=== PATIENT | male | born 1945 | race Caucasian/White ===

== ENCOUNTER → 2022-10-14 08:06 | Outpatient (BNVA) | payer MEDICARE, BC, SELFPAY | PROVIDERS: PCP Internal Medicine; Visit Provider Internal Medicine | DX: I48.19 Other persistent atrial fibrillation (principal); Z51.81 Encounter for therapeutic drug level monitoring; Z79.01 Long term (current) use of anticoagulants | CPT/HCPCS: 85610; 99202 ==

== ENCOUNTER → 2022-10-22 08:25 | Outpatient (BNVA) | payer MEDICARE, BC, SELFPAY | PROVIDERS: PCP Internal Medicine; Visit Provider Internal Medicine | DX: I48.91 Unspecified atrial fibrillation (principal); Z79.01 Long term (current) use of anticoagulants; Z51.81 Encounter for therapeutic drug level monitoring | CPT/HCPCS: 85610; 99211 ==

== ENCOUNTER → 2022-11-09 08:41 | Outpatient (BNVA) | payer MEDICARE, BC, SELFPAY | PROVIDERS: PCP Internal Medicine; Visit Provider Internal Medicine | DX: I48.91 Unspecified atrial fibrillation (principal); Z51.81 Encounter for therapeutic drug level monitoring; Z79.01 Long term (current) use of anticoagulants | CPT/HCPCS: 85610; 99211 ==

== ENCOUNTER → 2022-11-22 08:02 | Outpatient (BNVA) | payer MEDICARE, BC, SELFPAY | PROVIDERS: PCP Internal Medicine; Visit Provider Internal Medicine | DX: I48.91 Unspecified atrial fibrillation (principal); Z79.01 Long term (current) use of anticoagulants; Z51.81 Encounter for therapeutic drug level monitoring | CPT/HCPCS: 85610; 99211 ==

== ENCOUNTER → 2022-11-29 08:44 | Outpatient (BNVA) | payer MEDICARE, BC, SELFPAY | PROVIDERS: PCP Internal Medicine; Visit Provider Internal Medicine | DX: I48.91 Unspecified atrial fibrillation (principal); Z79.01 Long term (current) use of anticoagulants; Z51.81 Encounter for therapeutic drug level monitoring | CPT/HCPCS: 85610; 99211 ==

== ENCOUNTER → 2022-12-07 08:07 | Outpatient (BNVA) | payer MEDICARE, BC, SELFPAY | PROVIDERS: PCP Internal Medicine; Visit Provider Internal Medicine | DX: I48.91 Unspecified atrial fibrillation (principal); Z79.01 Long term (current) use of anticoagulants; Z51.81 Encounter for therapeutic drug level monitoring | CPT/HCPCS: 85610; 99211 ==

== ENCOUNTER → 2022-12-14 08:02 | Outpatient (BNVA) | payer MEDICARE, BC, SELFPAY | PROVIDERS: PCP Internal Medicine; Visit Provider Internal Medicine | DX: I48.91 Unspecified atrial fibrillation (principal); Z51.81 Encounter for therapeutic drug level monitoring; Z79.01 Long term (current) use of anticoagulants | CPT/HCPCS: 85610; 99211 ==

== ENCOUNTER → 2023-01-03 08:01 | Outpatient (BNVA) | payer MEDICARE, BC, SELFPAY | PROVIDERS: PCP Internal Medicine; Visit Provider Internal Medicine | DX: I48.91 Unspecified atrial fibrillation (principal); Z79.01 Long term (current) use of anticoagulants; Z51.81 Encounter for therapeutic drug level monitoring | CPT/HCPCS: 85610; 99211 ==

== ENCOUNTER → 2023-01-14 08:01 | Outpatient (BNVA) | payer MEDICARE, BC, SELFPAY | PROVIDERS: PCP Internal Medicine; Visit Provider Internal Medicine | DX: I48.91 Unspecified atrial fibrillation (principal); Z79.01 Long term (current) use of anticoagulants; Z51.81 Encounter for therapeutic drug level monitoring | CPT/HCPCS: 85610; 99211 ==

== ENCOUNTER → 2023-02-01 07:54 | Outpatient (BNVA) | payer MEDICARE, BC, SELFPAY | PROVIDERS: PCP Internal Medicine; Visit Provider Internal Medicine | DX: I48.19 Other persistent atrial fibrillation (principal); Z79.01 Long term (current) use of anticoagulants; Z51.81 Encounter for therapeutic drug level monitoring | CPT/HCPCS: 85610; 99211 ==

== ENCOUNTER → 2023-02-07 08:02 | Outpatient (BNVA) | payer MEDICARE, BC, SELFPAY | PROVIDERS: PCP Internal Medicine; Visit Provider Internal Medicine | DX: I48.19 Other persistent atrial fibrillation (principal); Z79.01 Long term (current) use of anticoagulants; Z51.81 Encounter for therapeutic drug level monitoring | CPT/HCPCS: 85610; 99211 ==

== ENCOUNTER → 2023-02-21 08:01 | Outpatient (BNVA) | payer MEDICARE, BC, SELFPAY | PROVIDERS: PCP Internal Medicine; Visit Provider Internal Medicine | DX: I48.91 Unspecified atrial fibrillation (principal); Z79.01 Long term (current) use of anticoagulants; Z51.81 Encounter for therapeutic drug level monitoring | CPT/HCPCS: 85610; 99211 ==

== ENCOUNTER → 2023-03-14 07:58 | Outpatient (BNVA) | payer MEDICARE, BC, SELFPAY | PROVIDERS: PCP Internal Medicine; Visit Provider Internal Medicine | DX: I48.91 Unspecified atrial fibrillation (principal); Z79.01 Long term (current) use of anticoagulants; Z51.81 Encounter for therapeutic drug level monitoring | CPT/HCPCS: 85610; 99211 ==

== ENCOUNTER 2023-03-21 08:02 | Outpatient (AMB) | payer MEDICARE, BC, SELFPAY ==
--- NOTE | 2023-03-21 08:26 | MHC.OFFVISCO ---
Intake Intake Visit Reasons: Anticoagulation Allergies hydrochlorothiazide Adverse Reaction (Severe, Verified 03/21/23 08:22) muscle spasms WALTER Inhibitors Adverse Reaction (Intermediate, Verified 03/21/23 08:22) muscle spasms angiotensin receptor antagonist Allergy (Unknown, Uncoded 03/21/23 08:22) Unknown some statins Adverse Reaction (Intermediate, Uncoded 03/21/23 08:22) muscle spasms Medication List - Last Reconciled 03/21/23 by Corry Weaver RN carvedilol 12.5 mg PO BID hydrochlorothiazide 25 mg PO DAILY mometasone 50 mcg/actuation 2 sprays intranasal DAILY rosuvastatin 40 mg PO DAILY spironolactone 25 mg PO DAILY tamsulosin 0.4 mg PO DAILY warfarin 5 mg See Protocol PO DAILY Nursing Note INR: 2.2- in therapeutic range Medications and supplements reviewed- no changes No changes in health, diet, medications, or supplements, Denies any signs and symptoms of bleeding or bruising or clotting. Bleeding, bruising, clotting discussed Nutritional guidance given Dose: 5mg x 7 F/U INR: 2 weeks Patient verbalizes understanding of instructions given Anti-Coag Initial Assessment Social Hx Patient Tobacco Use Status: Former Tobacco user Tobacco use type: Cigarette alcohol intake: never Cardiovascular Hx: HTN, CHF and Arrhythmias Blood Disorder Hx: Hyperlipidemia Hx: Bladder Disorders (cancer right kidney) and Prostate Cancer HX: Yes Psych. Illness/Depression: No Coding Level of Care Code Est Patient Level 1 Diagnoses Current use of anticoagulant therapy Z79.01 Results AMB INR Fingerstick AMB INR Fingerstick 2.2 Last Edit by Corry Weaver RN on 03/21/23 08:27 Assessment & Plan Assessment & Plan (1) Current use of anticoagulant therapy: Code(s): Z79.01 - residential (current) use of anticoagulants Category: Medical
[2023-03-21 08:27] LABS: Prothrombin Time Whole Bld POC 26.1 sec (11.1-13.5); ~PT, ~INR - Anti Coag Clinic 2.2 (0.9-1.1)
== END 2023-03-21 08:35 | disposition home or self-care (01) ==
LOC: HO.ACS 08:02
PROVIDERS: PCP Internal Medicine; Visit Provider Internal Medicine
DX: Z79.01 Long term (current) use of anticoagulants (principal)

== ENCOUNTER → 2023-03-21 08:02 | Outpatient (BNVA) | payer MEDICARE, BC, SELFPAY | PROVIDERS: PCP Internal Medicine; Visit Provider Internal Medicine | DX: I48.91 Unspecified atrial fibrillation (principal); Z79.01 Long term (current) use of anticoagulants; Z51.81 Encounter for therapeutic drug level monitoring | CPT/HCPCS: 85610; 99211 ==

== ENCOUNTER 2023-04-18 08:14 | Outpatient (AMB) | payer MEDICARE, BC, SELFPAY ==
--- NOTE | 2023-04-18 08:22 | MHC.OFFVISCO ---
Intake Intake Visit Reasons: Anticoagulation Allergies hydrochlorothiazide Adverse Reaction (Severe, Verified 04/18/23 08:17) muscle spasms WALTER Inhibitors Adverse Reaction (Intermediate, Verified 04/18/23 08:17) muscle spasms angiotensin receptor antagonist Allergy (Unknown, Uncoded 04/18/23 08:17) Unknown some statins Adverse Reaction (Intermediate, Uncoded 04/18/23 08:17) muscle spasms Medication List - Last Reconciled 04/18/23 by Corry Weaver RN carvedilol 12.5 mg PO BID hydrochlorothiazide 25 mg PO DAILY mometasone 50 mcg/actuation 2 sprays intranasal DAILY PRN rosuvastatin 40 mg PO DAILY spironolactone 25 mg PO DAILY tamsulosin 0.4 mg PO DAILY warfarin 5 mg See Protocol PO DAILY Nursing Note INR: 2.8- in therapeutic range Medications and supplements reviewed- no changes No changes in health, diet, medications, or supplements, Denies any signs and symptoms of bleeding or bruising or clotting. Bleeding, bruising, clotting discussed Nutritional guidance given Dose: 5 mg x 7 F/U INR: pt req 4 weeks Patient verbalizes understanding of instructions given Anti-Coag Initial Assessment Social Hx Patient Tobacco Use Status: Former Tobacco user Tobacco use type: Cigarette alcohol intake: never Cardiovascular Hx: HTN, CHF and Arrhythmias Blood Disorder Hx: Hyperlipidemia Hx: Bladder Disorders (cancer right kidney) and Prostate Cancer HX: Yes Psych. Illness/Depression: No Coding Level of Care Code Est Patient Level 1 Diagnoses Current use of anticoagulant therapy Z79.01 Results AMB INR Fingerstick AMB INR Fingerstick 2.8 Last Edit by Corry Weaver RN on 04/18/23 08:24 Assessment & Plan Assessment & Plan (1) Current use of anticoagulant therapy: Code(s): Z79.01 - terminal makeup operator (current) use of anticoagulants Category: Medical
[2023-04-18 08:33] LABS: Prothrombin Time Whole Bld POC 33.9 sec (11.1-13.5); ~PT, ~INR - Anti Coag Clinic 2.8 (0.9-1.1)
== END 2023-04-18 08:27 | disposition home or self-care (01) ==
LOC: HO.ACS 08:14
PROVIDERS: PCP Internal Medicine; Visit Provider Internal Medicine
DX: Z79.01 Long term (current) use of anticoagulants (principal)

== ENCOUNTER → 2023-04-18 08:14 | Outpatient (BNVA) | payer MEDICARE, BC, SELFPAY | PROVIDERS: PCP Internal Medicine; Visit Provider Internal Medicine | DX: I48.91 Unspecified atrial fibrillation (principal); Z79.01 Long term (current) use of anticoagulants; Z51.81 Encounter for therapeutic drug level monitoring | CPT/HCPCS: 85610; 99211 ==

== ENCOUNTER 2023-05-16 08:03 | Outpatient (AMB) | payer MEDICARE, BC, SELFPAY ==
--- NOTE | 2023-05-16 08:08 | MHC.OFFVISCO ---
Intake Intake Visit Reasons: Anticoagulation Allergies hydrochlorothiazide Adverse Reaction (Severe, Verified 05/16/23 08:04) muscle spasms WALTER Inhibitors Adverse Reaction (Intermediate, Verified 05/16/23 08:04) muscle spasms angiotensin receptor antagonist Allergy (Unknown, Uncoded 05/16/23 08:04) Unknown some statins Adverse Reaction (Intermediate, Uncoded 05/16/23 08:04) muscle spasms Medication List - Last Reconciled 05/16/23 by Corry Weaver RN carvedilol 12.5 mg PO BID hydrochlorothiazide 25 mg PO DAILY mometasone 50 mcg/actuation 2 sprays intranasal DAILY PRN rosuvastatin 40 mg PO DAILY spironolactone 25 mg PO DAILY tamsulosin 0.4 mg PO DAILY warfarin 5 mg See Protocol PO DAILY Nursing Note INR: 2.4- in therapeutic range Medications and supplements reviewed- no changes No changes in health, diet, medications, or supplements, Denies any signs and symptoms of bleeding or bruising or clotting. Bleeding, bruising, clotting discussed Nutritional guidance given Dose: 5 mg x 7 F/U INR: 4 weeks Patient verbalizes understanding of instructions given Anti-Coag Initial Assessment Social Hx Patient Tobacco Use Status: Former Tobacco user Tobacco use type: Cigarette alcohol intake: never Cardiovascular Hx: HTN, CHF and Arrhythmias Blood Disorder Hx: Hyperlipidemia Hx: Bladder Disorders (cancer right kidney) and Prostate Cancer HX: Yes Psych. Illness/Depression: No Coding Level of Care Code Est Patient Level 1 Diagnoses Current use of anticoagulant therapy Z79.01 Results AMB INR Fingerstick AMB INR Fingerstick 2.4 Last Edit by Corry Weaver RN on 05/16/23 08:09 Assessment & Plan Assessment & Plan (1) Current use of anticoagulant therapy: Code(s): Z79.01 - senior living (current) use of anticoagulants Category: Medical
[2023-05-16 08:09] LABS: Prothrombin Time Whole Bld POC 29.2 sec (11.1-13.5); ~PT, ~INR - Anti Coag Clinic 2.4 (0.9-1.1)
== END 2023-05-16 08:16 | disposition home or self-care (01) ==
LOC: HO.ACS 08:03
PROVIDERS: PCP Internal Medicine; Visit Provider Internal Medicine
DX: Z79.01 Long term (current) use of anticoagulants (principal)

== ENCOUNTER → 2023-05-16 08:03 | Outpatient (BNVA) | payer MEDICARE, BC, SELFPAY | PROVIDERS: PCP Internal Medicine; Visit Provider Internal Medicine | DX: I48.19 Other persistent atrial fibrillation (principal); Z79.01 Long term (current) use of anticoagulants; Z51.81 Encounter for therapeutic drug level monitoring | CPT/HCPCS: 85610; 99211 ==

== ENCOUNTER 2023-06-14 08:01 | Outpatient (AMB) | payer MEDICARE, BC, SELFPAY ==
--- NOTE | 2023-06-14 08:06 | MHC.OFFVISCO ---
Intake Intake Visit Reasons: Anticoagulation Allergies hydrochlorothiazide Adverse Reaction (Severe, Verified 06/14/23 08:03) muscle spasms WALTER Inhibitors Adverse Reaction (Intermediate, Verified 06/14/23 08:03) muscle spasms angiotensin receptor antagonist Allergy (Unknown, Uncoded 06/14/23 08:03) Unknown some statins Adverse Reaction (Intermediate, Uncoded 06/14/23 08:03) muscle spasms Medication List - Last Reconciled 06/14/23 by Corry Weaver RN carvedilol 12.5 mg PO BID hydrochlorothiazide 25 mg PO DAILY mometasone 50 mcg/actuation 2 sprays intranasal DAILY PRN rosuvastatin 40 mg PO DAILY spironolactone 25 mg PO DAILY tamsulosin 0.4 mg PO DAILY warfarin 5 mg See Protocol PO DAILY Nursing Note INR: 2.9- in therapeutic range Medications and supplements reviewed No changes in health, diet, medications, or supplements, Denies any signs and symptoms of bleeding or bruising or clotting. Bleeding, bruising, clotting discussed Nutritional guidance given Dose: 5mg x 7 F/U INR: 4 weeks Patient verbalizes understanding of instructions given Anti-Coag Initial Assessment Social Hx Patient Tobacco Use Status: Former Tobacco user Tobacco use type: Cigarette alcohol intake: never Cardiovascular Hx: HTN, CHF and Arrhythmias Blood Disorder Hx: Hyperlipidemia Hx: Bladder Disorders (cancer right kidney) and Prostate Cancer HX: Yes Psych. 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
== END 2023-06-14 08:12 | disposition home or self-care (01) ==
LOC: HO.ACS 08:01
PROVIDERS: PCP Internal Medicine; Visit Provider Internal Medicine
DX: Z79.01 Long term (current) use of anticoagulants (principal)

== ENCOUNTER → 2023-06-14 08:01 | Outpatient (BNVA) | payer MEDICARE, BC, SELFPAY | PROVIDERS: PCP Internal Medicine; Visit Provider Internal Medicine | DX: I48.91 Unspecified atrial fibrillation (principal); Z79.01 Long term (current) use of anticoagulants; Z51.81 Encounter for therapeutic drug level monitoring | CPT/HCPCS: 85610; 99211 ==

== ENCOUNTER 2023-07-12 08:01 | Outpatient (AMB) | payer MEDICARE, BC, SELFPAY ==
--- NOTE | 2023-07-12 08:03 | MHC.OFFVISCO ---
Intake Intake Visit Reasons: Anticoagulation Allergies hydrochlorothiazide Adverse Reaction (Severe, Verified 07/12/23 08:02) muscle spasms WALTER Inhibitors Adverse Reaction (Intermediate, Verified 07/12/23 08:02) muscle spasms angiotensin receptor antagonist Allergy (Unknown, Uncoded 07/12/23 08:02) Unknown some statins Adverse Reaction (Intermediate, Uncoded 07/12/23 08:02) muscle spasms Medication List - Last Reconciled 07/12/23 by Mary Jo Oconnell RN amoxicillin-pot clavulanate 875-125 mg 1 tab PO BID carvedilol 12.5 mg PO BID hydrochlorothiazide 25 mg PO DAILY mometasone 50 mcg/actuation 2 sprays intranasal DAILY PRN rosuvastatin 40 mg PO DAILY spironolactone 25 mg PO DAILY tamsulosin 0.4 mg PO DAILY warfarin 5 mg See Protocol PO DAILY Nursing Note pt visit delayed due to interfacing dfrom meter to expanse 5 minutes INR: 2.6 in therapeutic range Medications and supplements reviewed No changes in health, diet, medications, or supplements, Denies any signs and symptoms of bleeding or bruising or clotting. Bleeding, bruising, clotting discussed Nutritional guidance given Dose: 5mg daily F/U INR: 4 week Patient verbalizes understanding of instructions given Anti-Coag Initial Assessment Social Hx Patient Tobacco Use Status: Former Tobacco user Tobacco use type: Cigarette alcohol intake: never Cardiovascular Hx: HTN, CHF and Arrhythmias Blood Disorder Hx: Hyperlipidemia Hx: Bladder Disorders (cancer right kidney) and Prostate Cancer HX: Yes Psych. Illness/Depression: No Coding Level of Care Code Est Patient Level 1 Diagnoses Current use of anticoagulant therapy Z79.01 Assessment & Plan Assessment & Plan (1) Current use of anticoagulant therapy: Code(s): Z79.01 - shelter (current) use of anticoagulants Category: Medical
[2023-07-12 08:08] LABS: Prothrombin Time Whole Bld POC 30.8 sec (11.1-13.5); ~PT, ~INR - Anti Coag Clinic 2.6 (0.9-1.1)
== END 2023-07-12 08:13 | disposition home or self-care (01) ==
LOC: HO.ACS 08:01
PROVIDERS: PCP Internal Medicine; Visit Provider Internal Medicine
DX: Z79.01 Long term (current) use of anticoagulants (principal)

== ENCOUNTER → 2023-07-12 08:01 | Outpatient (BNVA) | payer MEDICARE, BC, SELFPAY | PROVIDERS: PCP Internal Medicine; Visit Provider Internal Medicine | DX: I48.91 Unspecified atrial fibrillation (principal); Z79.01 Long term (current) use of anticoagulants; Z51.81 Encounter for therapeutic drug level monitoring | CPT/HCPCS: 85610; 99211 ==

== ENCOUNTER 2023-08-08 08:02 | Outpatient (AMB) | payer MEDICARE, BC, SELFPAY ==
[2023-08-08 08:06] LABS: Prothrombin Time Whole Bld POC 33.9 sec (11.1-13.5); ~PT, ~INR - Anti Coag Clinic 2.8 (0.9-1.1)
--- NOTE | 2023-08-08 08:08 | MHC.OFFVISCO ---
Intake Intake Visit Reasons: Anticoagulation Allergies hydrochlorothiazide Adverse Reaction (Severe, Verified 07/12/23 08:02) muscle spasms WALTER Inhibitors Adverse Reaction (Intermediate, Verified 07/12/23 08:02) muscle spasms angiotensin receptor antagonist Allergy (Unknown, Uncoded 07/12/23 08:02) Unknown some statins Adverse Reaction (Intermediate, Uncoded 07/12/23 08:02) muscle spasms Nursing Note INR: 2.8 in therapeutic range Medications and supplements reviewed No changes in health, diet, medications, or supplements, Denies any signs and symptoms of bleeding or bruising or clotting. Bleeding, bruising, clotting discussed Nutritional guidance given Dose: 5mg daily F/U INR: 1 month Patient verbalizes understanding of instructions given Anti-Coag Initial Assessment Social Hx Patient Tobacco Use Status: Former Tobacco user Tobacco use type: Cigarette alcohol intake: never Cardiovascular Hx: HTN, CHF and Arrhythmias Blood Disorder Hx: Hyperlipidemia Hx: Bladder Disorders (cancer right kidney) and Prostate Cancer HX: Yes Psych. Illness/Depression: No Coding Level of Care Code Est Patient Level 1 Diagnoses Current use of anticoagulant therapy Z79.01 Assessment & Plan Assessment & Plan (1) Current use of anticoagulant therapy: Code(s): Z79.01 - shelter (current) use of anticoagulants Category: Medical
== END 2023-08-08 08:10 | disposition home or self-care (01) ==
LOC: HO.ACS 08:02
PROVIDERS: PCP Internal Medicine; Visit Provider Internal Medicine
DX: Z79.01 Long term (current) use of anticoagulants (principal)

== ENCOUNTER → 2023-08-08 08:02 | Outpatient (BNVA) | payer MEDICARE, BC, SELFPAY | PROVIDERS: PCP Internal Medicine; Visit Provider Internal Medicine | DX: I48.91 Unspecified atrial fibrillation (principal); Z79.01 Long term (current) use of anticoagulants; Z51.81 Encounter for therapeutic drug level monitoring | CPT/HCPCS: 85610; 99211 ==

== ENCOUNTER 2023-09-19 08:06 | Outpatient (AMB) | payer MEDICARE, BC, SELFPAY ==
[2023-09-19 08:18] LABS: Prothrombin Time Whole Bld POC 24.6 sec (11.1-13.5); ~PT, ~INR - Anti Coag Clinic 2.1 (0.9-1.1)
--- NOTE | 2023-09-19 08:24 | MHC.OFFVISCO ---
Intake Intake Visit Reasons: Anticoagulation Allergies hydrochlorothiazide Adverse Reaction (Severe, Verified 09/19/23 08:07) muscle spasms WALTER Inhibitors Adverse Reaction (Intermediate, Verified 09/19/23 08:07) muscle spasms angiotensin receptor antagonist Allergy (Unknown, Uncoded 09/19/23 08:07) Unknown some statins Adverse Reaction (Intermediate, Uncoded 09/19/23 08:07) muscle spasms Medication List - Last Reconciled 09/19/23 by Mary Jo Oconnell RN carvedilol 12.5 mg PO BID hydrochlorothiazide 25 mg PO DAILY mometasone 50 mcg/actuation 2 sprays intranasal DAILY PRN simvastatin 40 mg PO QPM spironolactone 25 mg PO DAILY tamsulosin 0.4 mg PO DAILY warfarin 5 mg See Protocol PO DAILY Nursing Note INR: 2.1 in therapeutic range Medications and supplements reviewed Atorvastatin changed to simvistatin 3 weeks ago-can have delayed onset - changed due to leg crmaps, Denies any signs and symptoms of bleeding or bruising or clotting. Bleeding, bruising, clotting discussed Nutritional guidance given - eat a mix of fruits and vegetables, enc some fruits and vegetalbes with coq 10 to help eas leg cramps, enc to discuss with md regarding coq10 - may lower INR Dose: keep same 5mg daily F/U INR: 2 weeks due to med change Patient verbalizes understanding of instructions given Anti-Coag Initial Assessment Social Hx Patient Tobacco Use Status: Former Tobacco user Tobacco use type: Cigarette alcohol intake: never Cardiovascular Hx: HTN, CHF and Arrhythmias Blood Disorder Hx: Hyperlipidemia Hx: Bladder Disorders (cancer right kidney) and Prostate Cancer HX: Yes Psych. 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
== END 2023-09-19 08:29 | disposition home or self-care (01) ==
LOC: HO.ACS 08:06
PROVIDERS: PCP Internal Medicine; Visit Provider Internal Medicine
DX: Z79.01 Long term (current) use of anticoagulants (principal)

== ENCOUNTER → 2023-09-19 08:06 | Outpatient (BNVA) | payer MEDICARE, BC, SELFPAY | PROVIDERS: PCP Internal Medicine; Visit Provider Internal Medicine | DX: I48.91 Unspecified atrial fibrillation (principal); Z79.01 Long term (current) use of anticoagulants; Z51.81 Encounter for therapeutic drug level monitoring | CPT/HCPCS: 85610; 99211 ==

== ENCOUNTER 2023-10-11 07:56 | Outpatient (AMB) | payer MEDICARE, BC, SELFPAY ==
--- NOTE | 2023-10-11 08:31 | MHC.OFFVISCO ---
Intake Intake Visit Reasons: Anticoagulation Allergies hydrochlorothiazide Adverse Reaction (Severe, Verified 10/11/23 08:18) muscle spasms WALTER Inhibitors Adverse Reaction (Intermediate, Verified 10/11/23 08:18) muscle spasms angiotensin receptor antagonist Allergy (Unknown, Uncoded 10/11/23 08:18) Unknown some statins Adverse Reaction (Intermediate, Uncoded 10/11/23 08:18) muscle spasms Medication List - Last Reconciled 10/11/23 by Karma Haile RN carvedilol 12.5 mg PO BID hydrochlorothiazide 25 mg PO DAILY mometasone 50 mcg/actuation 2 sprays intranasal DAILY PRN simvastatin 40 mg PO QPM spironolactone 25 mg PO DAILY tamsulosin 0.4 mg PO DAILY warfarin 5 mg See Protocol PO DAILY Nursing Note Amb to [facility] feeling well Medications and supplements reviewed sts he is on simvastatin for a few weeks, has statin allergies, sts he has been noticing some itchiness when eating certain foods encouraged to speak with Dr regarding these issues as he has a documented history of reactions to statins No other changes in health, diet, medications, or supplements Denies any unusual signs and symptoms of bruising, bleeding Denies any new Chest pain, SOB, or clotting INR: 2.6 in therapeutic range Nutritional guidance given: balance greens and reds in diet Dose: continue usual dosing;5mg daily F/U INR: 4 weeks Patient verbalizes understanding of instructions given with accurate read back/ teach back of dosing Anti-Coag Initial Assessment Social Hx Patient Tobacco Use Status: Former Tobacco user Tobacco use type: Cigarette alcohol intake: never Cardiovascular Hx: HTN, CHF and Arrhythmias Blood Disorder Hx: Hyperlipidemia Hx: Bladder Disorders (cancer right kidney) and Prostate Cancer HX: Yes Psych. Illness/Depression: No Questionnaires HAS-BLED Does the patient had uncontrolled Hypertension?: No Does the patient have renal disease?: No Does the patient have liver disease?: No Does the patient have a history of stroke?: No Has the patient had major bleeding or predisposition to bleeding?: No Does the patient have labile INRs?: No Is the patient over 65 years of age?: Yes Is the patient on medications that gives them a predisposition to bleeding?: Yes Does the patient use alcohol?: Yes HAS-BLED Score: 3 CHADSVASC Age: 75 or over Gender: Male Does the patient have a history of CHF?: No Does the patient have a history of Hypertension?: Yes Does the patient have a history of Stroke/TIA/Thromboembolism?: No Does the patient have a history of Vascular Disease (prior TX, PAD or aortic plaque)?: No Does the patient have a history of Diabetes?: No CHADS VACS Score: 3 Kathy Prediction Score Rsk VTE Active Cancer: No Previous VTE, excluding superficial vein thrombosis: No Reduced mobility: No Already known Thrombophilic Condition: Yes With-in last month Trauma and/or Surgery: No Elderly 70 year or older: Yes Heart and/or Respiratory Failure: No Acute Myocardial infarction and/or Ischemic Stroke: No Acute Infection and/or Rheumatologic Disorder: No Obesity (BMI 30 or greater): No Ongoing Hormonal Treatment: No Score: 4 Kathy Score less than 4; Low Risk of VTE Kathy Score 4 or greater; High Risk of VTE Coding Level of Care Code Est Patient Level 1 Diagnoses Current use of anticoagulant therapy Z79.01 Time Spent (min) 15 Results AMB INR Fingerstick AMB INR Fingerstick 2.6 Last Edit by Karma Haile RN on 10/11/23 08:30 Interface failure Assessment & Plan Assessment & Plan (1) Current use of anticoagulant therapy: Code(s): Z79.01 - [facility] (current) use of anticoagulants Category: Medical
[2023-10-12 08:16] LABS: Prothrombin Time Whole Bld POC 31.4 sec (11.1-13.5); ~PT, ~INR - Anti Coag Clinic 2.6 (0.9-1.1)
== END 2023-10-11 08:41 | disposition home or self-care (01) ==
LOC: HO.ACS 07:56
PROVIDERS: PCP Internal Medicine; Visit Provider Internal Medicine
DX: Z79.01 Long term (current) use of anticoagulants (principal)

== ENCOUNTER → 2023-10-11 07:56 | Outpatient (BNVA) | payer MEDICARE, BC, SELFPAY | PROVIDERS: PCP Internal Medicine; Visit Provider Internal Medicine | DX: I48.19 Other persistent atrial fibrillation (principal); Z79.01 Long term (current) use of anticoagulants; Z51.81 Encounter for therapeutic drug level monitoring | CPT/HCPCS: 85610; 99211 ==

== ENCOUNTER 2023-11-07 08:01 | Outpatient (AMB) | payer MEDICARE, BC, SELFPAY ==
--- NOTE | 2023-11-07 08:14 | MHC.OFFVISCO ---
Intake Intake Visit Reasons: Anticoagulation Allergies hydrochlorothiazide Adverse Reaction (Severe, Verified 11/07/23 08:04) muscle spasms WALTER Inhibitors Adverse Reaction (Intermediate, Verified 11/07/23 08:04) muscle spasms angiotensin receptor antagonist Allergy (Unknown, Uncoded 11/07/23 08:04) Unknown some statins Adverse Reaction (Intermediate, Uncoded 11/07/23 08:04) muscle spasms Medication List - Last Reconciled 11/07/23 by Karma Ovalles RN carvedilol 12.5 mg PO BID hydrochlorothiazide 25 mg PO DAILY mometasone 50 mcg/actuation 2 sprays intranasal DAILY PRN simvastatin 40 mg PO QPM spironolactone 25 mg PO DAILY tamsulosin 0.4 mg PO DAILY warfarin 5 mg See Protocol PO DAILY Nursing Note INR: 2.1 in therapeutic range Medications and supplements reviewed No changes in health, diet, medications, or supplements, Denies any signs and symptoms of bleeding or bruising or clotting. Bleeding, bruising, clotting discussed Nutritional guidance given, careful withh greens today. have a serving from foods list that can raise INR today then balance greens and reds. Dose: 5mg daily F/U INR: 1 month Patient verbalizes understanding of instructions given Anti-Coag Initial Assessment Social Hx Patient Tobacco Use Status: Former Tobacco user Tobacco use type: Cigarette alcohol intake: never Cardiovascular Hx: HTN, CHF and Arrhythmias Blood Disorder Hx: Hyperlipidemia Hx: Bladder Disorders (cancer right kidney) and Prostate Cancer HX: Yes Psych. Illness/Depression: No Coding Level of Care Code Est Patient Level 1 Diagnoses Current use of anticoagulant therapy Z79.01 Results AMB INR Fingerstick AMB INR Fingerstick 2.1 Last Edit by Karma Ovalles RN on 11/07/23 08:11 interface delay Assessment & Plan Assessment & Plan (1) Current use of anticoagulant therapy: Code(s): Z79.01 - alf (current) use of anticoagulants Category: Medical
[2023-11-07 08:16] LABS: Prothrombin Time Whole Bld POC 25.6 sec (11.1-13.5); ~PT, ~INR - Anti Coag Clinic 2.1 (0.9-1.1)
== END 2023-11-07 08:17 | disposition home or self-care (01) ==
LOC: HO.ACS 08:01
PROVIDERS: PCP Internal Medicine; Visit Provider Internal Medicine
DX: Z79.01 Long term (current) use of anticoagulants (principal)

== ENCOUNTER → 2023-11-07 08:01 | Outpatient (BNVA) | payer MEDICARE, BC, SELFPAY | PROVIDERS: PCP Internal Medicine; Visit Provider Internal Medicine | DX: I48.19 Other persistent atrial fibrillation (principal); Z79.01 Long term (current) use of anticoagulants; Z51.81 Encounter for therapeutic drug level monitoring | CPT/HCPCS: 85610; 99211 ==

== ENCOUNTER 2023-12-05 07:58 | Outpatient (AMB) | payer MEDICARE, BC, SELFPAY ==
[2023-12-05 08:12] LABS: Prothrombin Time Whole Bld POC 29.3 sec (11.1-13.5); ~PT, ~INR - Anti Coag Clinic 2.4 (0.9-1.1)
--- NOTE | 2023-12-05 08:14 | MHC.OFFVISCO ---
Intake Intake Visit Reasons: Anticoagulation Allergies hydrochlorothiazide Adverse Reaction (Severe, Verified 12/05/23 08:05) muscle spasms WALTER Inhibitors Adverse Reaction (Intermediate, Verified 12/05/23 08:05) muscle spasms angiotensin receptor antagonist Allergy (Unknown, Uncoded 12/05/23 08:05) Unknown some statins Adverse Reaction (Intermediate, Uncoded 12/05/23 08:05) muscle spasms Medication List - Last Reconciled 12/05/23 by Karma Ovalles, RN carvedilol 12.5 mg PO BID hydrochlorothiazide 25 mg PO DAILY mometasone 50 mcg/actuation 2 sprays intranasal DAILY PRN simvastatin 40 mg PO QPM spironolactone 25 mg PO DAILY tamsulosin 0.4 mg PO DAILY warfarin 5 mg See Protocol PO DAILY Nursing Note INR: 2.4 in therapeutic range Medications and supplements reviewed: no changes No changes in health, diet, medications, or supplements, Denies any signs and symptoms of bleeding or bruising or clotting. Bleeding, bruising, clotting discussed Nutritional guidance given to continue to balance greens and reds Dose: cont usual dose of 5mg daily F/U INR: 4 weeks Patient verbalizes understanding of instructions given Anti-Coag Initial Assessment Social Hx Patient Tobacco Use Status: Former Tobacco user Tobacco use type: Cigarette alcohol intake: never Cardiovascular Hx: HTN, CHF and Arrhythmias Blood Disorder Hx: Hyperlipidemia Hx: Bladder Disorders (cancer right kidney) and Prostate Cancer HX: Yes Psych. 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
== END 2023-12-05 08:17 | disposition home or self-care (01) ==
LOC: HO.ACS 07:58
PROVIDERS: PCP Internal Medicine; Visit Provider Internal Medicine
DX: Z79.01 Long term (current) use of anticoagulants (principal)

== ENCOUNTER → 2023-12-05 07:58 | Outpatient (BNVA) | payer MEDICARE, BC, SELFPAY | PROVIDERS: PCP Internal Medicine; Visit Provider Internal Medicine | DX: I48.19 Other persistent atrial fibrillation (principal); Z51.81 Encounter for therapeutic drug level monitoring; Z79.01 Long term (current) use of anticoagulants | CPT/HCPCS: 85610; 99211 ==

== ENCOUNTER 2024-01-02 07:59 | Outpatient (AMB) | payer MEDICARE, BC, SELFPAY ==
[2024-01-02 08:06] LABS: Prothrombin Time Whole Bld POC 22.5 sec (11.1-13.5); ~PT, ~INR - Anti Coag Clinic 1.9 (0.9-1.1)
--- NOTE | 2024-01-02 08:13 | MHC.OFFVISCO ---
Intake Intake Visit Reasons: Anticoagulation Allergies hydrochlorothiazide Adverse Reaction (Severe, Verified 01/02/24 08:00) muscle spasms WALTER Inhibitors Adverse Reaction (Intermediate, Verified 01/02/24 08:00) muscle spasms angiotensin receptor antagonist Allergy (Unknown, Uncoded 01/02/24 08:00) Unknown some statins Adverse Reaction (Intermediate, Uncoded 01/02/24 08:00) muscle spasms Medication List - Last Reconciled 01/02/24 by Karma Ovalles RN carvedilol 12.5 mg PO BID hydrochlorothiazide 25 mg PO DAILY mometasone 50 mcg/actuation 2 sprays intranasal DAILY PRN simvastatin 40 mg PO QPM spironolactone 25 mg PO DAILY tamsulosin 0.4 mg PO DAILY warfarin 5 mg See Protocol PO DAILY Nursing Note INR: 1.9 out of therapeutic range of 2-3 Medications and supplements reviewed: no changes No changes in health, diet, medications, or supplements, Denies any signs and symptoms of bleeding or bruising or clotting. Bleeding, bruising, clotting discussed Nutritional guidance given to avoid greens today and have a serving of the foods list that raise the INR Dose: 5 mg daily F/U INR: 1 month Patient verbalizes understanding of instructions given Anti-Coag Initial Assessment Social Hx Patient Tobacco Use Status: Former Tobacco user Tobacco use type: Cigarette alcohol intake: never Cardiovascular Hx: HTN, CHF and Arrhythmias Blood Disorder Hx: Hyperlipidemia Hx: Bladder Disorders (cancer right kidney) and Prostate Cancer HX: Yes Psych. 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
== END 2024-01-02 08:17 | disposition home or self-care (01) ==
LOC: HO.ACS 07:59
PROVIDERS: PCP Internal Medicine; Visit Provider Internal Medicine
DX: Z79.01 Long term (current) use of anticoagulants (principal)

== ENCOUNTER → 2024-01-02 07:59 | Outpatient (BNVA) | payer MEDICARE, BC, SELFPAY | PROVIDERS: PCP Internal Medicine; Visit Provider Internal Medicine | DX: I48.19 Other persistent atrial fibrillation (principal); Z51.81 Encounter for therapeutic drug level monitoring; Z79.01 Long term (current) use of anticoagulants | CPT/HCPCS: 85610; 99211 ==

== ENCOUNTER 2024-01-31 08:14 | Outpatient (AMB) | payer MEDICARE, BC, SELFPAY ==
[2024-01-31 08:20] LABS: Prothrombin Time Whole Bld POC 17.9 sec (11.1-13.5); ~PT, ~INR - Anti Coag Clinic 1.5 (0.9-1.1)
--- NOTE | 2024-01-31 08:28 | MHC.OFFVISCO ---
Intake Intake Visit Reasons: Anticoagulation Allergies hydrochlorothiazide Adverse Reaction (Severe, Verified 01/31/24 08:15) muscle spasms WALTER Inhibitors Adverse Reaction (Intermediate, Verified 01/31/24 08:15) muscle spasms angiotensin receptor antagonist Allergy (Unknown, Uncoded 01/31/24 08:15) Unknown some statins Adverse Reaction (Intermediate, Uncoded 01/31/24 08:15) muscle spasms Medication List - Last Reconciled 01/31/24 by Karma Ovalles RN carvedilol 12.5 mg PO BID hydrochlorothiazide 25 mg PO DAILY mometasone 50 mcg/actuation 2 sprays intranasal DAILY PRN simvastatin 40 mg PO QPM spironolactone 25 mg PO DAILY tamsulosin 0.4 mg PO DAILY warfarin 5 mg See Protocol PO DAILY Nursing Note INR 1.5?out of therapeutic range of 2-3 Pt questions if he missed a dose Medications and supplements reviewed: no changes Patient status: feels well Medications or supplements: no changes Diet: usual diet for pt Denies any signs and symptoms of bleeding or clotting or unusual bruising Bleeding, bruising, clotting discussed Nutritional guidance given: to avoid greens today and to have a serving of food from the list that can raise the INR Dose: increase today to 10 mg (5mg) then usual dose of 5mg daily F/U INR Date : 02/06/24?? Patient verbalizing understanding of instructions given. T/C to Dr Beka Kwok to report critical value 1.5. Spoke to nurse and dosage increase with plan for re test relayed to her. Anti-Coag Initial Assessment Social Hx Patient Tobacco Use Status: Former Tobacco user Tobacco use type: Cigarette alcohol intake: never Cardiovascular Hx: HTN, CHF and Arrhythmias Blood Disorder Hx: Hyperlipidemia Hx: Bladder Disorders (cancer right kidney) and Prostate Cancer HX: Yes Psych. 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
== END 2024-01-31 08:33 | disposition home or self-care (01) ==
LOC: HO.ACS 08:14
PROVIDERS: PCP Internal Medicine; Visit Provider Internal Medicine
DX: Z79.01 Long term (current) use of anticoagulants (principal)

== ENCOUNTER → 2024-01-31 08:14 | Outpatient (BNVA) | payer MEDICARE, BC, SELFPAY | PROVIDERS: PCP Internal Medicine; Visit Provider Internal Medicine | DX: I48.19 Other persistent atrial fibrillation (principal); Z79.01 Long term (current) use of anticoagulants; Z51.81 Encounter for therapeutic drug level monitoring | CPT/HCPCS: 85610; 99211 ==

== ENCOUNTER 2024-02-06 08:20 | Outpatient (AMB) | payer MEDICARE, BC, SELFPAY ==
[2024-02-06 08:33] LABS: Prothrombin Time Whole Bld POC 21.6 sec (11.1-13.5); ~PT, ~INR - Anti Coag Clinic 1.8 (0.9-1.1)
--- NOTE | 2024-02-06 08:41 | MHC.OFFVISCO ---
Intake Intake Visit Reasons: Anticoagulation Allergies hydrochlorothiazide Adverse Reaction (Severe, Verified 02/06/24 08:25) muscle spasms WALTER Inhibitors Adverse Reaction (Intermediate, Verified 02/06/24 08:25) muscle spasms angiotensin receptor antagonist Allergy (Unknown, Uncoded 02/06/24 08:25) Unknown some statins Adverse Reaction (Intermediate, Uncoded 02/06/24 08:25) muscle spasms Medication List - Last Reconciled 02/06/24 by Mary Jo Oconnell RN carvedilol 12.5 mg PO BID furosemide 20 mg PO DAILY hydrochlorothiazide 25 mg PO DAILY mometasone 50 mcg/actuation 2 sprays intranasal DAILY PRN simvastatin 40 mg PO QPM spironolactone 25 mg PO DAILY tamsulosin 0.4 mg PO DAILY warfarin 5 mg See Protocol PO DAILY Nursing Note INR: 1.8 STILL OUT OF RANGE Medications and supplements reviewed MAY HAVE MISSED A DOSE PREVIOUS VISIT, NOW WITH WARM WEATHER HE IS MORE ACTIVE AND HAS BEEN EATING MORE SALADS Denies any signs and symptoms of bleeding or bruising or clotting. Bleeding, bruising, clotting discussed Nutritional guidance given - INCREASE ORANGE AND REDS WHILE HAVING MORE GREENS, JUST AVOID GREENS TODAY AND TOMORROW THEN RESUME USUAL DIET BUT WITH MORE ORANGE AND REDS Dose: INCREASE WEEKLY DOSE FOR NOW 7.5MG X 1 DAY/ 5MG X 6 DAYS F/U INR: 1 WEEK Patient verbalizes understanding of instructions given Anti-Coag Initial Assessment Social Hx Patient Tobacco Use Status: Former Tobacco user Tobacco use type: Cigarette alcohol intake: never Cardiovascular Hx: HTN, CHF and Arrhythmias Blood Disorder Hx: Hyperlipidemia Hx: Bladder Disorders (cancer right kidney) and Prostate Cancer HX: Yes Psych. Illness/Depression: No Coding Level of Care Code Est Patient Level 1 Diagnoses Current use of anticoagulant therapy Z79.01 Results AMB INR Fingerstick AMB INR Fingerstick 1.8 Last Edit by Mary Jo Oconnell RN on 02/06/24 08:36 MANUAL ENTRY Assessment & Plan Assessment & Plan (1) Current use of anticoagulant therapy: Code(s): Z79.01 - [facility] (current) use of anticoagulants Category: Medical
== END 2024-02-06 08:45 | disposition home or self-care (01) ==
LOC: HO.ACS 08:20
PROVIDERS: PCP Internal Medicine; Visit Provider Internal Medicine
DX: Z79.01 Long term (current) use of anticoagulants (principal)

== ENCOUNTER → 2024-02-06 08:20 | Outpatient (BNVA) | payer MEDICARE, BC, SELFPAY | PROVIDERS: PCP Internal Medicine; Visit Provider Internal Medicine | DX: I48.19 Other persistent atrial fibrillation (principal); Z79.01 Long term (current) use of anticoagulants; Z51.81 Encounter for therapeutic drug level monitoring | CPT/HCPCS: 85610; 99211 ==

== ENCOUNTER 2024-02-13 08:18 | Outpatient (AMB) | payer MEDICARE, BC, SELFPAY ==
[2024-02-13 08:28] LABS: ~PT, ~INR - Anti Coag Clinic 1.8 (0.9-1.1)
--- NOTE | 2024-02-13 08:34 | MHC.OFFVISCO ---
Intake Intake Visit Reasons: Anticoagulation Allergies hydrochlorothiazide Adverse Reaction (Severe, Verified 02/13/24 08:19) muscle spasms WALTER Inhibitors Adverse Reaction (Intermediate, Verified 02/13/24 08:19) muscle spasms angiotensin receptor antagonist Allergy (Unknown, Uncoded 02/13/24 08:19) Unknown some statins Adverse Reaction (Intermediate, Uncoded 02/13/24 08:19) muscle spasms Medication List - Last Reconciled 02/13/24 by Mary Jo Oconnell RN carvedilol 12.5 mg PO BID furosemide 20 mg PO DAILY simvastatin 40 mg PO QPM tamsulosin 0.4 mg PO DAILY warfarin 5 mg See Protocol PO DAILY Nursing Note INR 1.8 out of therapeutic range Medications and supplements reviewed Patient status: OUTSIDE MORE, EATING MORE SALADS WITH WARM WEATHER- MED CHANGE Medications or supplements: HCTZ CHANGED TO FURORSEMIDE Diet: GOOD Denies any signs and symptoms of bleeding or clotting or unusual bruising Bleeding, bruising, clotting discussed Nutritional guidance given: CONT TO EAT A MIX Dose: INCREASE WEEKLY DOSE AGAIN 7.5MG X 2 DAYS/ 5G X 5 DAYS F/U INR Date : 2 WEEKS ?? Patient verbalizing understanding of instructions given. Anti-Coag Initial Assessment Social Hx Patient Tobacco Use Status: Former Tobacco user Tobacco use type: Cigarette alcohol intake: never Cardiovascular Hx: HTN, CHF and Arrhythmias Blood Disorder Hx: Hyperlipidemia Hx: Bladder Disorders (cancer right kidney) and Prostate Cancer HX: Yes Psych. Illness/Depression: No Coding Level of Care Code Est Patient Level 1 Diagnoses Current use of anticoagulant therapy Z79.01 Results AMB INR Fingerstick AMB INR Fingerstick 1.8 Last Edit by Mary Jo Oconnell RN on 02/13/24 08:30 MANUAL ENTRY Assessment & Plan Assessment & Plan (1) Current use of anticoagulant therapy: Code(s): Z79.01 - long-term (current) use of anticoagulants Category: Medical Medications: New cholecalciferol (vitamin D3) PO
== END 2024-02-13 08:36 | disposition home or self-care (01) ==
LOC: HO.ACS 08:18
PROVIDERS: PCP Internal Medicine; Visit Provider Internal Medicine
DX: Z79.01 Long term (current) use of anticoagulants (principal)

== ENCOUNTER → 2024-02-13 08:18 | Outpatient (BNVA) | payer MEDICARE, BC, SELFPAY | PROVIDERS: PCP Internal Medicine; Visit Provider Internal Medicine | DX: I48.19 Other persistent atrial fibrillation (principal); Z79.01 Long term (current) use of anticoagulants; Z51.81 Encounter for therapeutic drug level monitoring | CPT/HCPCS: 85610; 99211 ==

== ENCOUNTER 2024-02-28 08:35 | Outpatient (AMB) | payer MEDICARE, BC, SELFPAY ==
[2024-02-28 08:52] LABS: Prothrombin Time Whole Bld POC 18.2 sec (11.1-13.5); ~PT, ~INR - Anti Coag Clinic 1.5 (0.9-1.1)
--- NOTE | 2024-02-28 09:10 | MHC.OFFVISCO ---
Intake Intake Visit Reasons: Anticoagulation Allergies hydrochlorothiazide Adverse Reaction (Severe, Verified 02/28/24 08:44) muscle spasms WALTER Inhibitors Adverse Reaction (Intermediate, Verified 02/28/24 08:44) muscle spasms angiotensin receptor antagonist Allergy (Unknown, Uncoded 02/28/24 08:44) Unknown some statins Adverse Reaction (Intermediate, Uncoded 02/28/24 08:44) muscle spasms Medication List - Last Reconciled 02/28/24 by Karma Haile, RN carvedilol 12.5 mg PO BID cholecalciferol (vitamin D3) PO furosemide 20 mg PO DAILY simvastatin 40 mg PO QPM tamsulosin 0.4 mg PO DAILY warfarin 5 mg See Protocol PO DAILY Nursing Note Amb to [facility] feeling ok pt expresses much concern over recent low INRs sts he is not missing doses and is not eating greens indicated that this past week ate a lot of fruits, watermelon, canteloupe and blueberries (blueberries can act as a green ) pt also insicated he has some rashes on his body they are itchy at times, start as a pimple and then turn into this then go visualized areas of almost circular areas on right thigh, trunk and forearm slightly pink to reddened in color areas, dry, no noted vesicles- encouraged to report it to PCP and to send picture through portal Medications and supplements reviewed, sts he is off Entresto for over a week (no warfarin interference per micromedex) and has been taking more furosemide, sts he only uses it as needed, not daily but took a few doses last week due to lower left leg swelling, sts it helped- noted left lower leg, no edema noted, negative Homans, denies any pain, color slightly reddened as venous stasis No changes in medications, or supplements, Denies any signs and symptoms of bleeding, bruising, or clotting. 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 [facility] reviewed clotting concerns and need to balance fluids in diet as pt eludes to not drinking fluids so he won't have to take the lasix reviewed importance of diet and fluid balances during this time of high heat and humidity sts he had a couple episodes where he felt like he needed to catch my breath (with activity) apical heart sounds only slight irregular and no noted tachycardia reviewed again balance activity and rest, watching school age grandchildren F/U INR:Monday 03/05 Patient verbalizes understanding of instructions given 0915 critical INR, dosing, follow up , assessment, skin concerns reported to Dr Schwartz office, telephone message left with Dr Schwartz nurse Sharon with call back number if any new orders Anti-Coag Initial Assessment Social Hx Patient Tobacco Use Status: Former Tobacco user Tobacco use type: Cigarette alcohol intake: never Cardiovascular Hx: HTN, CHF and Arrhythmias Blood Disorder Hx: Hyperlipidemia Hx: Bladder Disorders (cancer right kidney) and Prostate Cancer HX: Yes Psych. Illness/Depression: No Coding Level of Care Code Est Patient Level 2 Diagnoses Current use of anticoagulant therapy Z79.01 Time Spent (min) 30 Assessment & Plan Assessment & Plan (1) Current use of anticoagulant therapy: Code(s): Z79.01 - shelter (current) use of anticoagulants Category: Medical
--- NOTE | 2024-02-28 16:29 | MHC.OFFVISCO ---
Intake Intake Visit Reasons: Anticoagulation Allergies hydrochlorothiazide Adverse Reaction (Severe, Verified 02/28/24 08:44) muscle spasms WALTER Inhibitors Adverse Reaction (Intermediate, Verified 02/28/24 08:44) muscle spasms angiotensin receptor antagonist Allergy (Unknown, Uncoded 02/28/24 08:44) Unknown some statins Adverse Reaction (Intermediate, Uncoded 02/28/24 08:44) muscle spasms Medication List - Last Reconciled 02/28/24 by Karma Haile RN carvedilol 12.5 mg PO BID cholecalciferol (vitamin D3) PO furosemide 20 mg PO DAILY simvastatin 40 mg PO QPM tamsulosin 0.4 mg PO DAILY warfarin 5 mg See Protocol PO DAILY Nursing Note [facility] 1945 [id number] 02/28/24 09:10 - Nursing Note by Karma Haile RN Acct Num: [id number] : 1945 Patient Age: 78 Addendum entered by Karma Haile RN 02/28/24 11:46: TC back from Lucia LONGO at Dr Schwartz office, no new orders Original Note: Intake Intake Visit Reasons: Anticoagulation Allergies hydrochlorothiazide Adverse Reaction (Severe, Verified 02/28/24 08:44) muscle spasmsACE Inhibitors Adverse Reaction (Intermediate, Verified 02/28/24 08:44) muscle spasmsangiotensin receptor antagonist Allergy (Unknown, Uncoded 02/28/24 08:44) Unknownsome statins Adverse Reaction (Intermediate, Uncoded 02/28/24 08:44) muscle spasms Medication List - Last Reconciled 02/28/24 by Karma Haile RN carvedilol 12.5 mg PO BID cholecalciferol (vitamin D3) PO furosemide 20 mg PO DAILY simvastatin 40 mg PO QPM tamsulosin 0.4 mg PO DAILY warfarin 5 mg See Protocol PO DAILY Nursing Note Amb to [facility] feeling ok pt expresses much concern over recent low INRs sts he is not missing doses and is not eating greens indicated that this past week ate a lot of fruits, watermelon, canteloupe and blueberries (blueberries can act as a green ) pt also insicated he has some rashes on his body they are itchy at times, start as a pimple and then turn into this then go visualized areas of almost circular areas on right thigh, trunk and forearm slightly pink to reddened in color areas, dry, no noted vesicles- encouraged to report it to PCP and to send picture through portal Medications and supplements reviewed, sts he is off Entresto for over a week (no warfarin interference per micromedex) and has been taking more furosemide, sts he only uses it as needed, not daily but took a few doses last week due to lower left leg swelling, sts it helped- noted left lower leg, no edema noted, negative Homans, denies any pain, color slightly reddened as venous stasis No changes in medications, or supplements, Denies any signs and symptoms of bleeding, bruising, or clotting. 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 [facility] reviewed clotting concerns and need to balance fluids in diet as pt eludes to not drinking fluids so he won't have to take the lasix reviewed importance of diet and fluid balances during this time of high heat and humidity sts he had a couple episodes where he felt like he needed to catch my breath (with activity) apical heart sounds only slight irregular and no noted tachycardia reviewed again balance activity and rest, watching school age grandchildren F/U INR:Monday 03/05 Patient verbalizes understanding of instructions given 0915 critical INR, dosing, follow up , assessment, skin concerns reported to Dr Schwartz office, telephone message left with Dr Schwartz nurse Sharon with call back number if any new orders Anti-Coag Initial Assessment Social Hx Patient Tobacco Use Status: Former Tobacco user Tobacco use type: Cigarette alcohol intake: never Cardiovascular Hx: HTN, CHF and Arrhythmias Blood Disorder Hx: Hyperlipidemia Hx: Bladder Disorders (cancer right kidney) and Prostate Cancer HX: Yes Psych. Illness/Depression: No Coding Level of Care Code Est Patient Level 2 Diagnoses Current use of anticoagulant therapy Z79.01 Time Spent (min) 30 Assessment & Plan Assessment & Plan (1) Current use of anticoagulant therapy: Code(s): Z79.01 - remote computer terminal operator (current) use of anticoagulants Category: Medical Initialized on 02/28/24 09:10 - END OF NOTE Anti-Coag Initial Assessment Social Hx Patient Tobacco Use Status: Former Tobacco user Tobacco use type: Cigarette alcohol intake: never Cardiovascular Hx: HTN, CHF and Arrhythmias Blood Disorder Hx: Hyperlipidemia Hx: Bladder Disorders (cancer right kidney) and Prostate Cancer HX: Yes Psych. Illness/Depression: No Coding Level of Care Code Est Patient Level 2 Diagnoses Current use of anticoagulant therapy Z79.01 Time Spent (min) 30 Assessment & Plan Assessment & Plan (1) Current use of anticoagulant therapy: Code(s): Z79.01 - remote computer terminal operator (current) use of anticoagulants Category: Medical
--- NOTE | 2024-02-28 16:30 | MHC.OFFVISCO ---
Intake Intake Visit Reasons: Anticoagulation Allergies hydrochlorothiazide Adverse Reaction (Severe, Verified 02/28/24 08:44) muscle spasms WALTER Inhibitors Adverse Reaction (Intermediate, Verified 02/28/24 08:44) muscle spasms angiotensin receptor antagonist Allergy (Unknown, Uncoded 02/28/24 08:44) Unknown some statins Adverse Reaction (Intermediate, Uncoded 02/28/24 08:44) muscle spasms Medication List - Last Reconciled 02/28/24 by Karma Haile RN carvedilol 12.5 mg PO BID cholecalciferol (vitamin D3) PO furosemide 20 mg PO DAILY simvastatin 40 mg PO QPM tamsulosin 0.4 mg PO DAILY warfarin 5 mg See Protocol PO DAILY Anti-Coag Initial Assessment Social Hx Patient Tobacco Use Status: Former Tobacco user Tobacco use type: Cigarette alcohol intake: never Cardiovascular Hx: HTN, CHF and Arrhythmias Blood Disorder Hx: Hyperlipidemia Hx: Bladder Disorders (cancer right kidney) and Prostate Cancer HX: Yes Psych. Illness/Depression: No Coding Diagnoses Current use of anticoagulant therapy Z79.01 Assessment & Plan Assessment & Plan (1) Current use of anticoagulant therapy: Code(s): Z79.01 - skilled nursing (current) use of anticoagulants Category: Medical
== END 2024-02-28 09:56 | disposition home or self-care (01) ==
LOC: HO.ACS 08:35
PROVIDERS: PCP Internal Medicine; Visit Provider Internal Medicine
DX: Z79.01 Long term (current) use of anticoagulants (principal)

== ENCOUNTER → 2024-02-28 08:35 | Outpatient (BNVA) | payer MEDICARE, BC, SELFPAY | PROVIDERS: PCP Internal Medicine; Visit Provider Internal Medicine | DX: I48.19 Other persistent atrial fibrillation (principal); Z79.01 Long term (current) use of anticoagulants; Z51.81 Encounter for therapeutic drug level monitoring | CPT/HCPCS: 85610; 99212 ==

== ENCOUNTER 2024-03-05 08:16 | Outpatient (AMB) | payer MEDICARE, BC, SELFPAY ==
[2024-03-05 08:51] LABS: Prothrombin Time Whole Bld POC 33.5 sec (11.1-13.5); ~PT, ~INR - Anti Coag Clinic 2.8 (0.9-1.1)
--- NOTE | 2024-03-05 10:11 | MHC.OFFVISCO ---
Intake Intake Visit Reasons: Anticoagulation Allergies hydrochlorothiazide Adverse Reaction (Severe, Verified 03/05/24 08:43) muscle spasms WALTER Inhibitors Adverse Reaction (Intermediate, Verified 03/05/24 08:43) muscle spasms angiotensin receptor antagonist Allergy (Unknown, Uncoded 03/05/24 08:43) Unknown some statins Adverse Reaction (Intermediate, Uncoded 03/05/24 08:43) muscle spasms Medication List - Last Reconciled 03/05/24 by Mary Jo Oconnell RN carvedilol 12.5 mg PO BID cholecalciferol (vitamin D3) PO furosemide 20 mg PO DAILY simvastatin 40 mg PO QPM tamsulosin 0.4 mg PO DAILY warfarin 5 mg See Protocol PO DAILY Nursing Note INR: 2.8 in therapeutic range. s/p INR 1.5 - off entresto due to rash, on furosemide- has had low INR values and no missed doses, has hx of renal CA, has hx of afib and reoccurring edema - has f/u with cardiology 03/23/24 house sitting for family out near [facility] wont be back until 03/20/24 - lab slip given and enc o go to urgent care for any bleeding or bruising or s/sx of clotting and lab slip given for PT /INR prn Medications and supplements reviewed No changes in health, diet, medications, or supplements, Denies any signs and symptoms of bleeding or bruising or clotting. Bleeding, bruising, clotting discussed Nutritional guidance given resume 2 serving of greens /week Dose: 7.5mg x 3 days / 5mg x 4 days F/U INR: 03/20/24 - if unable to keep appt may have INR done at cardiology in [facility] Patient verbalizes understanding of instructions given Anti-Coag Initial Assessment Social Hx Patient Tobacco Use Status: Former Tobacco user Tobacco use type: Cigarette alcohol intake: never Cardiovascular Hx: HTN, CHF and Arrhythmias Blood Disorder Hx: Hyperlipidemia Hx: Bladder Disorders (cancer right kidney) and Prostate Cancer HX: Yes Psych. Illness/Depression: No Coding Level of Care Code Est Patient Level 1 Diagnoses Current use of anticoagulant therapy Z79.01 Results AMB INR Fingerstick AMB INR Fingerstick 2.8 Last Edit by Mary Jo Oconnell RN on 03/05/24 08:52 MANULA ENTRY Assessment & Plan Assessment & Plan (1) Current use of anticoagulant therapy: Code(s): Z79.01 - terminal gauger supervisor (current) use of anticoagulants Category: Medical Orders: Orders Prothrombin Time INR Today Z79.01 - terminal gauger supervisor (current) use of anticoagulants
== END 2024-03-05 10:18 | disposition home or self-care (01) ==
PROVIDERS: PCP Internal Medicine; Visit Provider Internal Medicine
DX: Z79.01 Long term (current) use of anticoagulants (principal)

== ENCOUNTER → 2024-03-05 08:16 | Outpatient (BNVA) | payer MEDICARE, BC, SELFPAY | PROVIDERS: PCP Internal Medicine; Visit Provider Internal Medicine | DX: I48.19 Other persistent atrial fibrillation (principal); Z51.81 Encounter for therapeutic drug level monitoring; Z79.01 Long term (current) use of anticoagulants | CPT/HCPCS: 85610; 99211 ==

== ENCOUNTER 2024-03-20 08:50 | Outpatient (AMB) | payer MEDICARE, BC, SELFPAY ==
[2024-03-20 09:04] LABS: ~PT, ~INR - Anti Coag Clinic 1.6 (0.9-1.1)
--- NOTE | 2024-03-20 09:19 | MHC.OFFVISCO ---
Intake Intake Visit Reasons: Anticoagulation Allergies hydrochlorothiazide Adverse Reaction (Severe, Verified 03/20/24 08:58) muscle spasms WALTER Inhibitors Adverse Reaction (Intermediate, Verified 03/20/24 08:58) muscle spasms angiotensin receptor antagonist Allergy (Unknown, Uncoded 03/20/24 08:58) Unknown some statins Adverse Reaction (Intermediate, Uncoded 03/20/24 08:58) muscle spasms Medication List - Last Reconciled 03/20/24 by Karma Ovalles RN carvedilol 12.5 mg PO BID cholecalciferol (vitamin D3) PO furosemide 20 mg PO DAILY simvastatin 40 mg PO QPM tamsulosin 0.4 mg PO DAILY warfarin 5 mg See Protocol PO DAILY Nursing Note INR 1.6?out of therapeutic range of 2-3 Medications and supplements reviewed Patient status: states he's been taking Lasix prn for SOB and chest tightness. He weighs himself daily. Has an appt with legal biller on 03/23/24. Lasix can decrease the INR. Medications or supplements: no changes Diet: avoiding greens and having more summer fruits Denies any signs and symptoms of bleeding or clotting or unusual bruising Bleeding, bruising, clotting discussed Nutritional guidance given: continue to avoid greens Dose: weekly dose increased to 7.5mg X 5 days and 5mg X 2 days F/U INR Date : 2 weeks?? Patient verbalizing understanding of instructions given. Anti-Coag Initial Assessment Social Hx Patient Tobacco Use Status: Former Tobacco user Tobacco use type: Cigarette alcohol intake: never Cardiovascular Hx: HTN, CHF and Arrhythmias Blood Disorder Hx: Hyperlipidemia Hx: Bladder Disorders (cancer right kidney) and Prostate Cancer HX: Yes Psych. Illness/Depression: No Coding Level of Care Code Est Patient Level 1 Diagnoses Current use of anticoagulant therapy Z79.01 Assessment & Plan Assessment & Plan (1) Current use of anticoagulant therapy: Code(s): Z79.01 - termite helper (current) use of anticoagulants Category: Medical
== END 2024-03-20 09:23 | disposition home or self-care (01) ==
LOC: HO.ACS 08:50
PROVIDERS: PCP Internal Medicine; Visit Provider Internal Medicine
DX: Z79.01 Long term (current) use of anticoagulants (principal)

== ENCOUNTER → 2024-03-20 08:50 | Outpatient (BNVA) | payer MEDICARE, BC, SELFPAY | PROVIDERS: PCP Internal Medicine; Visit Provider Internal Medicine | DX: I48.19 Other persistent atrial fibrillation (principal); Z79.01 Long term (current) use of anticoagulants; Z51.81 Encounter for therapeutic drug level monitoring | CPT/HCPCS: 85610; 99211 ==

== ENCOUNTER 2024-04-03 08:07 | Outpatient (AMB) | payer MEDICARE, BC, SELFPAY ==
[2024-04-03 08:10] LABS: Prothrombin Time Whole Bld POC 23.1 sec (11.1-13.5); ~PT, ~INR - Anti Coag Clinic 1.9 (0.9-1.1)
--- NOTE | 2024-04-03 08:17 | MHC.OFFVISCO ---
Intake Intake Visit Reasons: Anticoagulation Allergies hydrochlorothiazide Adverse Reaction (Severe, Verified 04/03/24 08:09) muscle spasms WALTER Inhibitors Adverse Reaction (Intermediate, Verified 04/03/24 08:09) muscle spasms angiotensin receptor antagonist Allergy (Unknown, Uncoded 04/03/24 08:09) Unknown some statins Adverse Reaction (Intermediate, Uncoded 04/03/24 08:09) muscle spasms Medication List - Last Reconciled 04/03/24 by Mary Jo Oconnell RN carvedilol 12.5 mg PO BID cholecalciferol (vitamin D3) PO furosemide 20 mg PO DAILY simvastatin 40 mg PO QPM tamsulosin 0.4 mg PO DAILY warfarin 5 mg See Protocol PO DAILY Nursing Note INR: 1.9 ALOMOST in therapeutic range Medications and supplements reviewed- FUROSEMIDE DAILY MAY LOWER THE INR , EDEMA IS LESS No changes in health, diet, medications, or supplements, Denies any signs and symptoms of bleeding or bruising or clotting. Bleeding, bruising, clotting discussed Nutritional guidance given- ENC TO HAVE MORE ORANGE AND REDS WHILE HAVING GREENS Dose: 7.5MG X 5 DAYS/ 5MG X 2 DAYS TRY AGAIN F/U INR: 04/16/24 Patient verbalizes understanding of instructions given Anti-Coag Initial Assessment Social Hx Patient Tobacco Use Status: Former Tobacco user Tobacco use type: Cigarette alcohol intake: never Cardiovascular Hx: HTN, CHF and Arrhythmias Blood Disorder Hx: Hyperlipidemia Hx: Bladder Disorders (cancer right kidney) and Prostate Cancer HX: Yes Psych. Illness/Depression: No Coding Level of Care Code Est Patient Level 1 Diagnoses Current use of anticoagulant therapy Z79.01 Results AMB INR Fingerstick AMB INR Fingerstick 1.9 Last Edit by Mary Jo Oconnell RN on 04/03/24 08:12 NO INTERFACING FAILED SERVICE Assessment & Plan Assessment & Plan (1) Current use of anticoagulant therapy: Code(s): Z79.01 - long term care administrator (current) use of anticoagulants Category: Medical
== END 2024-04-03 08:20 | disposition home or self-care (01) ==
LOC: HO.ACS 08:07
PROVIDERS: PCP Internal Medicine; Visit Provider Internal Medicine
DX: Z79.01 Long term (current) use of anticoagulants (principal)

== ENCOUNTER → 2024-04-03 08:07 | Outpatient (BNVA) | payer MEDICARE, BC, SELFPAY | PROVIDERS: PCP Internal Medicine; Visit Provider Internal Medicine | DX: I48.19 Other persistent atrial fibrillation (principal); Z79.01 Long term (current) use of anticoagulants; Z51.81 Encounter for therapeutic drug level monitoring | CPT/HCPCS: 85610; 99211 ==

== ENCOUNTER 2024-04-16 07:37 | Outpatient (AMB) | payer MEDICARE, BC, SELFPAY ==
--- NOTE | 2024-04-16 07:39 | MHC.OFFVISCO ---
Intake Intake Visit Reasons: Anticoagulation Allergies hydrochlorothiazide Adverse Reaction (Severe, Verified 04/03/24 08:09) muscle spasms WALTER Inhibitors Adverse Reaction (Intermediate, Verified 04/03/24 08:09) muscle spasms angiotensin receptor antagonist Allergy (Unknown, Uncoded 04/03/24 08:09) Unknown some statins Adverse Reaction (Intermediate, Uncoded 04/03/24 08:09) muscle spasms Nursing Note INR: 2.0 in therapeutic range Medications and supplements reviewed- REMAINS ON FUROSEMIDE No changes in health, diet, medications, or supplements, Denies any signs and symptoms of bleeding or bruising or clotting. Bleeding, bruising, clotting discussed Nutritional guidance given - EAT MORE REDS THAN GREENS Dose: 5MG X 2 DAYS/ 7.5MG X 5 DAYS F/U INR: 3 WEEKS PER PT REQUEST Patient verbalizes understanding of instructions given Anti-Coag Initial Assessment Social Hx Patient Tobacco Use Status: Former Tobacco user Tobacco use type: Cigarette alcohol intake: never Cardiovascular Hx: HTN, CHF and Arrhythmias Blood Disorder Hx: Hyperlipidemia Hx: Bladder Disorders (cancer right kidney) and Prostate Cancer HX: Yes Psych. Illness/Depression: No Coding Level of Care Code Est Patient Level 1 Diagnoses Current use of anticoagulant therapy Z79.01 Results AMB INR Fingerstick AMB INR Fingerstick 2.0 Last Edit by Mary Jo Oconenll RN on 04/16/24 07:44 MANUAL ENTRY Assessment & Plan Assessment & Plan (1) Current use of anticoagulant therapy: Code(s): Z79.01 - assisted (current) use of anticoagulants Category: Medical
[2024-04-16 07:43] LABS: Prothrombin Time Whole Bld POC 23.6 sec (11.1-13.5)
== END 2024-04-16 07:49 | disposition home or self-care (01) ==
LOC: HO.ACS 07:37
PROVIDERS: PCP Internal Medicine; Visit Provider Internal Medicine
DX: Z79.01 Long term (current) use of anticoagulants (principal)

== ENCOUNTER → 2024-04-16 07:37 | Outpatient (BNVA) | payer MEDICARE, BC, SELFPAY | PROVIDERS: PCP Internal Medicine; Visit Provider Internal Medicine | DX: I48.19 Other persistent atrial fibrillation (principal); Z79.01 Long term (current) use of anticoagulants; Z51.81 Encounter for therapeutic drug level monitoring | CPT/HCPCS: 85610; 99211 ==

== ENCOUNTER 2024-05-08 08:02 | Outpatient (AMB) | payer MEDICARE, BC, SELFPAY ==
[2024-05-08 08:21] LABS: Prothrombin Time Whole Bld POC 16.5 sec (11.1-13.5); ~PT, ~INR - Anti Coag Clinic 1.4 (0.9-1.1)
--- NOTE | 2024-05-08 08:23 | MHC.OFFVISCO ---
Intake Intake Visit Reasons: Anticoagulation Allergies hydrochlorothiazide Adverse Reaction (Severe, Verified 05/08/24 08:04) muscle spasms WALTER Inhibitors Adverse Reaction (Intermediate, Verified 05/08/24 08:04) muscle spasms angiotensin receptor antagonist Allergy (Unknown, Uncoded 05/08/24 08:04) Unknown some statins Adverse Reaction (Intermediate, Uncoded 05/08/24 08:04) muscle spasms Medication List - Last Reconciled 05/08/24 by Karma Ovalles RN carvedilol 12.5 mg PO BID cholecalciferol (vitamin D3) PO furosemide 20 mg PO DAILY hydrochlorothiazide 25 mg PO DAILY simvastatin 40 mg PO QPM tamsulosin 0.4 mg PO DAILY warfarin 5 mg See Protocol PO DAILY Nursing Note INR 1.4?out of therapeutic range of 2-3 P states he missed a dose on Sat Last INR 04/16 was 2.0 Pt has been running low X several weeks. Reports to [facility] that Lasix is only prn now and he takes it approx 3X/week. He is now on HCTZ. Has stress test on 05/03 at [facility] Medications and supplements reviewed: only change as noted above Patient status: feels well Medications or supplements: no changes Diet: usual diet for pt Denies any signs and symptoms of bleeding or clotting or unusual bruising Bleeding, bruising, clotting discussed Nutritional guidance given: Food list reviewed with pt Pt to avoid greens until INR therapeutic Dose: 10mg today and tomorrow then usual dose of 5mg the next day then pt to [facility] to retest F/U INR Date : 05/11/24?? Patient verbalizing understanding of instructions given. Anti-Coag Initial Assessment Social Hx Patient Tobacco Use Status: Former Tobacco user Tobacco use type: Cigarette alcohol intake: never Cardiovascular Hx: HTN, CHF and Arrhythmias Blood Disorder Hx: Hyperlipidemia Hx: Bladder Disorders (cancer right kidney) and Prostate Cancer HX: Yes Psych. Illness/Depression: No Coding Level of Care Code Est Patient Level 2 Diagnoses Current use of anticoagulant therapy Z79.01 Time Spent (min) 30 Comment INR critical low, assessment to determine reason for this and teaching regarding food list Results AMB INR Fingerstick AMB INR Fingerstick 1.4 Last Edit by Karma Ovalles RN on 05/08/24 08:17 interface delay Assessment & Plan Assessment & Plan (1) Current use of anticoagulant therapy: Code(s): Z79.01 - group home (current) use of anticoagulants Category: Medical
== END 2024-05-08 10:29 | disposition home or self-care (01) ==
LOC: HO.ACS 08:02
PROVIDERS: PCP Internal Medicine; Visit Provider Internal Medicine
DX: Z79.01 Long term (current) use of anticoagulants (principal)

== ENCOUNTER → 2024-05-08 08:02 | Outpatient (BNVA) | payer MEDICARE, BC, SELFPAY | PROVIDERS: PCP Internal Medicine; Visit Provider Internal Medicine | DX: I48.19 Other persistent atrial fibrillation (principal); Z79.01 Long term (current) use of anticoagulants; Z51.81 Encounter for therapeutic drug level monitoring | CPT/HCPCS: 85610; 99212 ==

== ENCOUNTER 2024-05-11 08:03 | Outpatient (AMB) | payer MEDICARE, BC, SELFPAY ==
[2024-05-11 08:25] LABS: ~PT, ~INR - Anti Coag Clinic 2.2 (0.9-1.1)
--- NOTE | 2024-05-11 08:37 | MHC.OFFVISCO ---
Intake Intake Visit Reasons: Anticoagulation Allergies hydrochlorothiazide Adverse Reaction (Severe, Verified 05/11/24 08:17) muscle spasms WALTER Inhibitors Adverse Reaction (Intermediate, Verified 05/11/24 08:17) muscle spasms angiotensin receptor antagonist Allergy (Unknown, Uncoded 05/11/24 08:17) Unknown some statins Adverse Reaction (Intermediate, Uncoded 05/11/24 08:17) muscle spasms Medication List - Last Reconciled 05/11/24 by Mary Jo Oconnell, RN carvedilol 12.5 mg PO BID cholecalciferol (vitamin D3) PO furosemide 20 mg PO DAILY PRN hydrochlorothiazide 25 mg PO DAILY simvastatin 40 mg PO QPM tamsulosin 0.4 mg PO DAILY warfarin 5 mg See Protocol PO DAILY Nursing Note INR: 2.2 in therapeutic range S/P INR 1.4 Tuesday05/08/24 Medications and supplements reviewed Pt to have cardiac cath 05/22/24 at [facility] with a goal of an INR of < 2.0 - which poses a challenge because INR has been sub therapeutic and now amparo points in 4 days - has a hx of renal cancer in the past and is due for an ultrasound- enc to bring in recent labs, explained to patient sometimes when kidney functions change it can effect the INR Denies any signs and symptoms of bleeding or bruising or clotting. Bleeding, bruising, clotting discussed Nutritional guidance given EAT A MIX OF FRUITS AND VEGETABLES Dose: 7.5MG X 6 DAYS/ 5MG X 1 DAY F/U INR: 05/17/24 to determine how many days to hold warfarin- no mention of lovenox per pt - or when Keena called from [facility] - [facility] will f/u call to verify - most likely not due to renal hx Patient verbalizes understanding of instructions given [address] [facility] 0900 no answer at this time will attempt to call later this am. [address] Franco at [facility] he stated per new guidelines no lovenox bridge pre or pos procedure due to risk of bleeding He stated to hold warfarin x 5 days only. It was explained the pt INRs have been labile with recent dose adjustments an INR will be done next week at time of hold on 05/17/24 and will report any out of range INRs and will call him [phone] Anti-Coag Initial Assessment Social Hx Patient Tobacco Use Status: Former Tobacco user Tobacco use type: Cigarette alcohol intake: never Cardiovascular Hx: HTN, CHF and Arrhythmias Blood Disorder Hx: Hyperlipidemia Hx: Bladder Disorders (cancer right kidney) and Prostate Cancer HX: Yes Psych. Illness/Depression: No Coding Level of Care Code Est Patient Level 1 Diagnoses Current use of anticoagulant therapy Z79.01 Assessment & Plan Assessment & Plan (1) Current use of anticoagulant therapy: Code(s): Z79.01 - [facility] (current) use of anticoagulants Category: Medical
== END 2024-05-11 08:43 | disposition home or self-care (01) ==
LOC: HO.ACS 08:03
PROVIDERS: PCP Internal Medicine; Visit Provider Internal Medicine
DX: Z79.01 Long term (current) use of anticoagulants (principal)

== ENCOUNTER → 2024-05-11 08:03 | Outpatient (BNVA) | payer MEDICARE, BC, SELFPAY | PROVIDERS: PCP Internal Medicine; Visit Provider Internal Medicine | DX: I48.19 Other persistent atrial fibrillation (principal); Z79.01 Long term (current) use of anticoagulants; Z51.81 Encounter for therapeutic drug level monitoring | CPT/HCPCS: 85610; 99211 ==

== ENCOUNTER 2024-05-25 08:02 | Outpatient (AMB) | payer MEDICARE, BC, SELFPAY ==
[2024-05-25 08:27] LABS: Prothrombin Time Whole Bld POC 14.6 sec (11.1-13.5); ~PT, ~INR - Anti Coag Clinic 1.2 (0.9-1.1)
--- NOTE | 2024-05-25 08:39 | MHC.OFFVISCO ---
Intake Intake Visit Reasons: Anticoagulation Allergies hydrochlorothiazide Adverse Reaction (Severe, Verified 05/25/24 08:22) muscle spasms WALTER Inhibitors Adverse Reaction (Intermediate, Verified 05/25/24 08:22) muscle spasms angiotensin receptor antagonist Allergy (Unknown, Uncoded 05/11/24 08:17) Unknown some statins Adverse Reaction (Intermediate, Uncoded 05/11/24 08:17) muscle spasms Medication List - Last Reconciled 05/25/24 by Essence Fairchild RN carvedilol 12.5 mg PO BID cholecalciferol (vitamin D3) PO furosemide 20 mg PO DAILY PRN hydrochlorothiazide 25 mg PO DAILY simvastatin 40 mg PO QPM tamsulosin 0.4 mg PO DAILY warfarin 5 mg See Protocol PO DAILY Nursing Note PT.HAD CARDIAC CATH. ON 05/22 WITHOUT ANY COMPLICATIONS. PT.RESUMED WARFARIN SAME DAY AT 10MGM PT.WAS OFF WARFARIN X 7 DAYS. PT.DENIES ANY CP,SOB MED CHANGES OR SX OF BLEEDING. BOOST TO 10MGM 2 DAYS THEN 7.5MGM DAILY AND RECHECK INR ON 05/29/24. GOOD UNDERSTANDING OF DOSING INSTR. Anti-Coag Initial Assessment Social Hx Patient Tobacco Use Status: Former Tobacco user Tobacco use type: Cigarette alcohol intake: never Cardiovascular Hx: HTN, CHF and Arrhythmias Blood Disorder Hx: Hyperlipidemia Hx: Bladder Disorders (cancer right kidney) and Prostate Cancer HX: Yes Psych. 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
== END 2024-05-25 08:44 | disposition home or self-care (01) ==
LOC: HO.ACS 08:02
PROVIDERS: PCP Internal Medicine; Visit Provider Internal Medicine
DX: Z79.01 Long term (current) use of anticoagulants (principal)

== ENCOUNTER → 2024-05-25 08:02 | Outpatient (BNVA) | payer MEDICARE, BC, SELFPAY | PROVIDERS: PCP Internal Medicine; Visit Provider Internal Medicine | DX: I48.19 Other persistent atrial fibrillation (principal); Z79.01 Long term (current) use of anticoagulants; Z51.81 Encounter for therapeutic drug level monitoring | CPT/HCPCS: 85610; 99211 ==

== ENCOUNTER 2024-05-29 13:03 | Outpatient (AMB) | payer MEDICARE, BC, SELFPAY ==
--- NOTE | 2024-05-29 13:18 | MHC.OFFVISCO ---
Intake Intake Visit Reasons: Anticoagulation Allergies hydrochlorothiazide Adverse Reaction (Severe, Verified 05/29/24 13:08) muscle spasms WALTER Inhibitors Adverse Reaction (Intermediate, Verified 05/29/24 13:08) muscle spasms angiotensin receptor antagonist Allergy (Unknown, Uncoded 05/29/24 13:08) Unknown some statins Adverse Reaction (Intermediate, Uncoded 05/29/24 13:08) muscle spasms Medication List - Last Reconciled 05/29/24 by Karma Ovalles RN carvedilol 12.5 mg PO BID cholecalciferol (vitamin D3) PO furosemide 20 mg PO DAILY PRN hydrochlorothiazide 25 mg PO DAILY simvastatin 40 mg PO QPM tamsulosin 0.4 mg PO DAILY warfarin 5 mg See Protocol PO DAILY Nursing Note INR: 1.8 out of therapeutic range of 2-3 Resumed warfarin after a 7 day hold first for dental extraction followed by cardiac cath on 05/22. Medications and supplements reviewed No changes in health, diet, medications, or supplements, Denies any signs and symptoms of bleeding or bruising or clotting. Bleeding, bruising, clotting discussed Nutritional guidance given to avoid greens today Dose: today's dose increased to 10 mg then 7.5mg daily F/U INR: 2 weeks Patient verbalizes understanding of instructions given Anti-Coag Initial Assessment Social Hx Patient Tobacco Use Status: Former Tobacco user Tobacco use type: Cigarette alcohol intake: never Cardiovascular Hx: HTN, CHF and Arrhythmias Blood Disorder Hx: Hyperlipidemia Hx: Bladder Disorders (cancer right kidney) and Prostate Cancer HX: Yes Psych. Illness/Depression: No Coding Level of Care Code Est Patient Level 1 Diagnoses Current use of anticoagulant therapy Z79.01 Results AMB INR Fingerstick AMB INR Fingerstick 1.8 Last Edit by Karma Ovalles RN on 05/29/24 13:15 interface delay Assessment & Plan Assessment & Plan (1) Current use of anticoagulant therapy: Code(s): Z79.01 - care home (current) use of anticoagulants Category: Medical
[2024-05-29 13:20] LABS: ~PT, ~INR - Anti Coag Clinic 1.8 (0.9-1.1)
== END 2024-05-29 13:22 | disposition home or self-care (01) ==
LOC: HO.ACS 13:03
PROVIDERS: PCP Internal Medicine; Visit Provider Internal Medicine
DX: Z79.01 Long term (current) use of anticoagulants (principal)

== ENCOUNTER → 2024-05-29 13:03 | Outpatient (BNVA) | payer MEDICARE, BC, SELFPAY | PROVIDERS: PCP Internal Medicine; Visit Provider Internal Medicine | DX: I48.19 Other persistent atrial fibrillation (principal); Z79.01 Long term (current) use of anticoagulants; Z51.81 Encounter for therapeutic drug level monitoring | CPT/HCPCS: 85610; 99211 ==

== ENCOUNTER 2024-06-12 07:55 | Outpatient (AMB) | payer MEDICARE, BC, SELFPAY ==
[2024-06-12 08:11] LABS: Prothrombin Time Whole Bld POC 43.4 sec (11.1-13.5); ~PT, ~INR - Anti Coag Clinic 3.6 (0.9-1.1)
--- NOTE | 2024-06-12 08:21 | MHC.OFFVISCO ---
Intake Intake Visit Reasons: Anticoagulation Allergies hydrochlorothiazide Adverse Reaction (Severe, Verified 06/12/24 08:02) muscle spasms WALTER Inhibitors Adverse Reaction (Intermediate, Verified 06/12/24 08:02) muscle spasms angiotensin receptor antagonist Allergy (Unknown, Uncoded 06/12/24 08:02) Unknown some statins Adverse Reaction (Intermediate, Uncoded 06/12/24 08:02) muscle spasms Medication List - Last Reconciled 06/12/24 by Karma Ovalles RN carvedilol 12.5 mg PO BID cholecalciferol (vitamin D3) PO clotrimazole-betamethasone 1-0.05 % appl topical PRN furosemide 20 mg PO DAILY PRN hydrochlorothiazide 25 mg PO DAILY simvastatin 40 mg PO QPM tamsulosin 0.4 mg PO DAILY warfarin 5 mg See Protocol PO DAILY Nursing Note INR 3.6?out of therapeutic range of 2-3 Medications and supplements reviewed Patient status: well Medications or supplements: no change Diet: usual diet but pt has been avoiding greens because the INR was low Denies any signs and symptoms of bleeding or clotting or unusual bruising Bleeding, bruising, clotting discussed Nutritional guidance given: have a serving of greens today Dose: decrease today's dose to 5mg (7.5) then resume usual dose of 7.5mg daily F/U INR Date : 2 weeks?? Patient verbalizing understanding of instructions given. Anti-Coag Initial Assessment Social Hx Patient Tobacco Use Status: Former Tobacco user Tobacco use type: Cigarette alcohol intake: never Cardiovascular Hx: HTN, CHF and Arrhythmias Blood Disorder Hx: Hyperlipidemia Hx: Bladder Disorders (cancer right kidney) and Prostate Cancer HX: Yes Psych. Illness/Depression: No Coding Level of Care Code Est Patient Level 1 Diagnoses Current use of anticoagulant therapy Z79.01 Results AMB INR Fingerstick AMB INR Fingerstick 3.6 Last Edit by Karma Ovalles RN on 06/12/24 08:12 interface delay Assessment & Plan Assessment & Plan (1) Current use of anticoagulant therapy: Code(s): Z79.01 - [facility] ([facility] use of anticoagulants Category: Medical
== END 2024-06-12 08:27 | disposition home or self-care (01) ==
LOC: HO.ACS 07:55
PROVIDERS: PCP Internal Medicine; Visit Provider Internal Medicine
DX: Z79.01 Long term (current) use of anticoagulants (principal)

== ENCOUNTER → 2024-06-12 07:55 | Outpatient (BNVA) | payer MEDICARE, BC, SELFPAY | PROVIDERS: PCP Internal Medicine; Visit Provider Internal Medicine | DX: I48.19 Other persistent atrial fibrillation (principal); Z79.01 Long term (current) use of anticoagulants; Z51.81 Encounter for therapeutic drug level monitoring | CPT/HCPCS: 85610; 99211 ==

== ENCOUNTER 2024-06-26 08:00 | Outpatient (AMB) | payer MEDICARE, BC, SELFPAY ==
[2024-06-26 08:11] LABS: Prothrombin Time Whole Bld POC 47.1 sec (11.1-13.5); ~PT, ~INR - Anti Coag Clinic 3.9 (0.9-1.1)
--- NOTE | 2024-06-26 08:20 | MHC.OFFVISCO ---
Intake Intake Visit Reasons: Anticoagulation Allergies hydrochlorothiazide Adverse Reaction (Severe, Verified 06/26/24 08:06) muscle spasms WALTER Inhibitors Adverse Reaction (Intermediate, Verified 06/26/24 08:06) muscle spasms angiotensin receptor antagonist Allergy (Unknown, Uncoded 06/26/24 08:06) Unknown some statins Adverse Reaction (Intermediate, Uncoded 06/26/24 08:06) muscle spasms Medication List - Last Reconciled 06/26/24 by Mary Jo Oconnell RN carvedilol 12.5 mg PO BID cetirizine 10 mg PO DAILY cholecalciferol (vitamin D3) PO clotrimazole-betamethasone 1-0.05 % appl topical PRN furosemide 20 mg PO DAILY hydrochlorothiazide 25 mg PO DAILY simvastatin 40 mg PO QPM tamsulosin 0.4 mg PO DAILY warfarin 5 mg See Protocol PO DAILY Nursing Note INR: 3.9 NOT IN therapeutic range Medications and supplements reviewed FUROSEMIDE IS 20MG DAILY NOW WITH PRN 20MG FOR EDEMA Denies any signs and symptoms of bleeding or bruising or clotting. Bleeding, bruising, clotting discussed Nutritional guidance given - ADD COOKED GREENS LIKE SPINACH AND THEN KIWII OR BLUEBERRIES Dose: 2.5MG TODAY AND A GREEN THEN DECREASE WEEKLY DOSE 5MG X 1 DAY/ 7.5MG X 6 DAYS F/U INR: 2 WEEKS Patient verbalizes understanding of instructions given Anti-Coag Initial Assessment Social Hx Patient Tobacco Use Status: Former Tobacco user Tobacco use type: Cigarette alcohol intake: never Cardiovascular Hx: HTN, CHF and Arrhythmias Blood Disorder Hx: Hyperlipidemia Hx: Bladder Disorders (cancer right kidney) and Prostate Cancer HX: Yes Psych. Illness/Depression: No Coding Level of Care Code Est Patient Level 1 Diagnoses Current use of anticoagulant therapy Z79.01 Assessment & Plan Assessment & Plan (1) Current use of anticoagulant therapy: Code(s): Z79.01 - [facility] (current) use of anticoagulants Category: Medical
== END 2024-06-26 08:22 | disposition home or self-care (01) ==
LOC: HO.ACS 08:00
PROVIDERS: PCP Internal Medicine; Visit Provider Internal Medicine
DX: Z79.01 Long term (current) use of anticoagulants (principal)

== ENCOUNTER → 2024-06-26 08:00 | Outpatient (BNVA) | payer MEDICARE, BC, SELFPAY | PROVIDERS: PCP Internal Medicine; Visit Provider Internal Medicine | DX: I48.19 Other persistent atrial fibrillation (principal); Z79.01 Long term (current) use of anticoagulants; Z51.81 Encounter for therapeutic drug level monitoring | CPT/HCPCS: 85610; 99211 ==

== ENCOUNTER 2024-07-16 08:19 | Outpatient (AMB) | payer MEDICARE, BC, SELFPAY ==
[2024-07-16 08:29] LABS: Prothrombin Time Whole Bld POC 22.2 sec (11.1-13.5); ~PT, ~INR - Anti Coag Clinic 1.9 (0.9-1.1)
--- NOTE | 2024-07-16 08:35 | MHC.OFFVISCO ---
Intake Intake Visit Reasons: Anticoagulation Allergies hydrochlorothiazide Adverse Reaction (Severe, Verified 07/16/24 08:21) muscle spasms WALTER Inhibitors Adverse Reaction (Intermediate, Verified 07/16/24 08:21) muscle spasms angiotensin receptor antagonist Allergy (Unknown, Uncoded 07/16/24 08:21) Unknown some statins Adverse Reaction (Intermediate, Uncoded 07/16/24 08:21) muscle spasms Medication List - Last Reconciled 07/16/24 by Karma Ovalles RN carvedilol 12.5 mg PO BID cetirizine 10 mg PO DAILY cholecalciferol (vitamin D3) PO clotrimazole-betamethasone 1-0.05 % appl topical PRN furosemide 20 mg PO DAILY hydrochlorothiazide 25 mg PO DAILY simvastatin 40 mg PO QPM tamsulosin 0.4 mg PO DAILY warfarin 5 mg See Protocol PO DAILY Nursing Note INR 1.9?out of therapeutic range of 2-3 Medications and supplements reviewed Patient status: states he had bleeding hemorrhoids 1 week ago and only took 5mg of warfarin daily instead of his usual dose of 7.5mg daily. Has stopped bleeding X 4 days now. He saw his PCP. Medications or supplements: new topical hemorrhoid cream but pt is not sure of the active ingredient ([facility] brand). Diet: usual Bleeding, bruising, clotting discussed. Pt instructed to call [facility] if he starts to bleed again. Nutritional guidance given: to balance greens and reds Dose: 7.5mg X 2 days and 5mg X 5 days F/U INR Date : 1 week?? Patient verbalizing understanding of instructions given. Anti-Coag Initial Assessment Social Hx Patient Tobacco Use Status: Former Tobacco user Tobacco use type: Cigarette alcohol intake: never Cardiovascular Hx: HTN, CHF and Arrhythmias Blood Disorder Hx: Hyperlipidemia Hx: Bladder Disorders (cancer right kidney) and Prostate Cancer HX: Yes Psych. Illness/Depression: No Coding Level of Care Code Est Patient Level 1 Diagnoses Current use of anticoagulant therapy Z79.01 Results AMB INR Fingerstick AMB INR Fingerstick 1.9 Last Edit by Karma Ovalles RN on 07/16/24 08:30 interface delay Assessment & Plan Assessment & Plan (1) Current use of anticoagulant therapy: Code(s): Z79.01 - long-term (current) use of anticoagulants Category: Medical
== END 2024-07-16 08:41 | disposition home or self-care (01) ==
LOC: HO.ACS 08:19
PROVIDERS: PCP Internal Medicine; Visit Provider Internal Medicine
DX: Z79.01 Long term (current) use of anticoagulants (principal)

== ENCOUNTER → 2024-07-16 08:19 | Outpatient (BNVA) | payer MEDICARE, BC, SELFPAY | PROVIDERS: PCP Internal Medicine; Visit Provider Internal Medicine | DX: I48.19 Other persistent atrial fibrillation (principal); Z79.01 Long term (current) use of anticoagulants; Z51.81 Encounter for therapeutic drug level monitoring | CPT/HCPCS: 85610; 99211 ==

== ENCOUNTER 2024-07-25 07:59 | Outpatient (AMB) | payer MEDICARE, BC, SELFPAY ==
[2024-07-25 08:05] LABS: Prothrombin Time Whole Bld POC 19.5 sec (11.1-13.5); ~PT, ~INR - Anti Coag Clinic 1.6 (0.9-1.1)
--- NOTE | 2024-07-25 08:09 | MHC.OFFVISCO ---
Intake Intake Visit Reasons: Anticoagulation Allergies hydrochlorothiazide Adverse Reaction (Severe, Verified 07/25/24 08:00) muscle spasms WALTER Inhibitors Adverse Reaction (Intermediate, Verified 07/25/24 08:00) muscle spasms angiotensin receptor antagonist Allergy (Unknown, Uncoded 07/25/24 08:00) Unknown some statins Adverse Reaction (Intermediate, Uncoded 07/25/24 08:00) muscle spasms Medication List - Last Reconciled 07/25/24 by Karma Ovalles RN carvedilol 12.5 mg PO BID cetirizine 10 mg PO DAILY cholecalciferol (vitamin D3) PO clotrimazole-betamethasone 1-0.05 % appl topical PRN furosemide 20 mg PO DAILY hydrochlorothiazide 25 mg PO DAILY simvastatin 40 mg PO QPM tamsulosin 0.4 mg PO DAILY warfarin 5 mg See Protocol PO DAILY Nursing Note INR 1.6?out of therapeutic range 2-3 Medications and supplements reviewed Patient status: well Medications or supplements: no changes Diet: usual diet for pt Denies any signs and symptoms of bleeding or clotting or unusual bruising Bleeding, bruising, clotting discussed Nutritional guidance given: avoid greens today and tomorrow and to have a serving of foods from the list that raises the INR Dose: increase today to 7.5mg(5mg) then 5mg X 5 days and 7.5mg X 2 days F/U INR Date : 2 weeks?? Patient verbalizing understanding of instructions given. Anti-Coag Initial Assessment Social Hx Patient Tobacco Use Status: Former Tobacco user Tobacco use type: Cigarette alcohol intake: never Cardiovascular Hx: HTN, CHF and Arrhythmias Blood Disorder Hx: Hyperlipidemia Hx: Bladder Disorders (cancer right kidney) and Prostate Cancer HX: Yes Psych. Illness/Depression: No Coding Level of Care Code Est Patient Level 1 Diagnoses Current use of anticoagulant therapy Z79.01 Assessment & Plan Assessment & Plan (1) Current use of anticoagulant therapy: Code(s): Z79.01 - [facility] (current) use of anticoagulants Category: Medical
== END 2024-07-25 08:13 | disposition home or self-care (01) ==
LOC: HO.ACS 07:59
PROVIDERS: PCP Internal Medicine; Visit Provider Internal Medicine
DX: Z79.01 Long term (current) use of anticoagulants (principal)

== ENCOUNTER → 2024-07-25 07:59 | Outpatient (BNVA) | payer MEDICARE, BC, SELFPAY | PROVIDERS: PCP Internal Medicine; Visit Provider Internal Medicine | DX: I48.19 Other persistent atrial fibrillation (principal); Z79.01 Long term (current) use of anticoagulants; Z51.81 Encounter for therapeutic drug level monitoring | CPT/HCPCS: 85610; 99211 ==

== ENCOUNTER 2024-08-13 07:59 | Outpatient (AMB) | payer MEDICARE, BC, SELFPAY ==
[2024-08-13 08:25] LABS: Prothrombin Time Whole Bld POC 30.5 sec (11.1-13.5); ~PT, ~INR - Anti Coag Clinic 2.5 (0.9-1.1)
--- NOTE | 2024-08-13 08:29 | MHC.OFFVISCO ---
Intake Intake Visit Reasons: Anticoagulation Allergies hydrochlorothiazide Adverse Reaction (Severe, Verified 08/13/24 08:17) muscle spasms WALTER Inhibitors Adverse Reaction (Intermediate, Verified 08/13/24 08:17) muscle spasms angiotensin receptor antagonist Allergy (Unknown, Uncoded 08/13/24 08:17) Unknown some statins Adverse Reaction (Intermediate, Uncoded 08/13/24 08:17) muscle spasms Medication List - Last Reconciled 08/13/24 by Mary Jo Oconnell RN carvedilol 12.5 mg PO BID cetirizine 10 mg PO DAILY cholecalciferol (vitamin D3) PO clotrimazole-betamethasone 1-0.05 % appl topical PRN furosemide 20 mg PO DAILY hydrochlorothiazide 25 mg PO DAILY simvastatin 40 mg PO QPM tamsulosin 0.4 mg PO DAILY warfarin 5 mg See Protocol PO DAILY Nursing Note INR: 2.0 in therapeutic range Medications and supplements reviewed No changes in health, diet, medications, or supplements, Denies any signs and symptoms of bleeding or bruising or clotting. Bleeding, bruising, clotting discussed Nutritional guidance given Dose: 5MG X 5 DAYS/ 7.5MG X 2 DAYS F/U INR: 1MONTH PER PET REQUEST DUE OTHER OBLIGATIONS Patient verbalizes understanding of instructions given Anti-Coag Initial Assessment Social Hx Patient Tobacco Use Status: Former Tobacco user Tobacco use type: Cigarette alcohol intake: never Cardiovascular Hx: HTN, CHF and Arrhythmias Blood Disorder Hx: Hyperlipidemia Hx: Bladder Disorders (cancer right kidney) and Prostate Cancer HX: Yes Psych. Illness/Depression: No Coding Level of Care Code Est Patient Level 1 Diagnoses Current use of anticoagulant therapy Z79.01 Assessment & Plan Assessment & Plan (1) Current use of anticoagulant therapy: Code(s): Z79.01 - [facility] (current) use of anticoagulants Category: Medical
== END 2024-08-13 08:34 | disposition home or self-care (01) ==
LOC: HO.ACS 07:59
PROVIDERS: PCP Internal Medicine; Visit Provider Internal Medicine
DX: Z79.01 Long term (current) use of anticoagulants (principal)

== ENCOUNTER → 2024-08-13 07:59 | Outpatient (BNVA) | payer MEDICARE, BC, SELFPAY | PROVIDERS: PCP Internal Medicine; Visit Provider Internal Medicine | DX: I48.19 Other persistent atrial fibrillation (principal); Z79.01 Long term (current) use of anticoagulants; Z51.81 Encounter for therapeutic drug level monitoring | CPT/HCPCS: 85610; 99211 ==

== ENCOUNTER 2024-09-10 08:01 | Outpatient (AMB) | payer MEDICARE, BC, SELFPAY ==
[2024-09-10 08:10] LABS: Prothrombin Time Whole Bld POC 24.7 sec (11.1-13.5); ~PT, ~INR - Anti Coag Clinic 2.1 (0.9-1.1)
--- NOTE | 2024-09-10 08:15 | MHC.OFFVISCO ---
Intake Intake Visit Reasons: Anticoagulation Allergies hydrochlorothiazide Adverse Reaction (Severe, Verified 09/10/24 08:03) muscle spasms WALTER Inhibitors Adverse Reaction (Intermediate, Verified 09/10/24 08:03) muscle spasms angiotensin receptor antagonist Allergy (Unknown, Uncoded 09/10/24 08:03) Unknown some statins Adverse Reaction (Intermediate, Uncoded 09/10/24 08:03) muscle spasms Medication List - Last Reconciled 09/10/24 by Karma Ovalles, RN carvedilol 12.5 mg PO BID cetirizine 10 mg PO DAILY cholecalciferol (vitamin D3) PO clotrimazole-betamethasone 1-0.05 % appl topical PRN furosemide 40 mg PO QAM hydrochlorothiazide 25 mg PO DAILY simvastatin 40 mg PO QPM tamsulosin 0.4 mg PO DAILY warfarin 5 mg See Protocol PO DAILY Nursing Note INR: 2.1 in therapeutic range of 2-3 Medications and supplements reviewed No changes in health, diet, medications, or supplements, Denies any signs and symptoms of bleeding or bruising or clotting. Bleeding, bruising, clotting discussed Nutritional guidance given to avoid greens today Dose: 5mg X 5 days and 7.5mg X 2 days F/U INR: 4 weeks Patient verbalizes understanding of instructions given Anti-Coag Initial Assessment Social Hx Patient Tobacco Use Status: Former Tobacco user Tobacco use type: Cigarette alcohol intake: never Cardiovascular Hx: HTN, CHF and Arrhythmias Blood Disorder Hx: Hyperlipidemia Hx: Bladder Disorders (cancer right kidney) and Prostate Cancer HX: Yes Psych. Illness/Depression: No Coding Level of Care Code Est Patient Level 1 Diagnoses Current use of anticoagulant therapy Z79.01 Assessment & Plan Assessment & Plan (1) Current use of anticoagulant therapy: Code(s): Z79.01 - [facility] (current) use of anticoagulants Category: Medical
== END 2024-09-10 08:29 | disposition home or self-care (01) ==
LOC: HO.ACS 08:01
PROVIDERS: PCP Internal Medicine; Visit Provider Internal Medicine
DX: Z79.01 Long term (current) use of anticoagulants (principal)

== ENCOUNTER → 2024-09-10 08:01 | Outpatient (BNVA) | payer MEDICARE, BC, SELFPAY | PROVIDERS: PCP Internal Medicine; Visit Provider Internal Medicine | DX: I48.19 Other persistent atrial fibrillation (principal); Z79.01 Long term (current) use of anticoagulants; Z51.81 Encounter for therapeutic drug level monitoring | CPT/HCPCS: 85610; 99211 ==

== ENCOUNTER 2024-10-15 07:44 | Outpatient (AMB) | payer MEDICARE, BC, SELFPAY ==
[2024-10-15 07:56] LABS: Prothrombin Time Whole Bld POC 19.9 sec (11.1-13.5); ~PT, ~INR - Anti Coag Clinic 1.7 (0.9-1.1)
--- NOTE | 2024-10-15 08:06 | MHC.OFFVISCO ---
Intake Intake Visit Reasons: Anticoagulation Allergies hydrochlorothiazide Adverse Reaction (Severe, Verified 10/15/24 07:48) muscle spasms WALTER Inhibitors Adverse Reaction (Intermediate, Verified 10/15/24 07:48) muscle spasms angiotensin receptor antagonist Allergy (Unknown, Uncoded 10/15/24 07:48) Unknown some statins Adverse Reaction (Intermediate, Uncoded 10/15/24 07:48) muscle spasms Medication List - Last Reconciled 10/15/24 by Mary Jo Oconnell RN carvedilol 12.5 mg PO BID cetirizine 10 mg PO DAILY cholecalciferol (vitamin D3) PO clotrimazole-betamethasone 1-0.05 % appl topical PRN furosemide 40 mg PO QAM hydrochlorothiazide 25 mg PO DAILY nitroglycerin mg sublingual simvastatin 40 mg PO QPM tamsulosin 0.4 mg PO DAILY warfarin 5 mg See Protocol PO DAILY Nursing Note INR 1.7? out of therapeutic range Medications and supplements reviewed Patient status: ATE CHCOCLATE AND GREENS , POSSIBLE MISSED DOSE - WARFARIN DOSE ADJUSTED MONTH AGO, MAY NEED TO GO MIDDLE OF PREVIOUS DOSE AND WHAT HE WAS Medications or supplements: NO CHANGE Diet: GOOD Denies any signs and symptoms of bleeding or clotting or unusual bruising Bleeding, bruising, clotting discussed Nutritional guidance given: NO GREENS X 3 DAYS THEN NORMAL HEALTH DIET Dose: INCREASE TO 7.5MG X 3 DAYS F/U INR Date : 2 WEEKS ?? Patient verbalizing understanding of instructions given. Anti-Coag Initial Assessment Social Hx Patient Tobacco Use Status: Former Tobacco user Tobacco use type: Cigarette alcohol intake: never Cardiovascular Hx: HTN, CHF and Arrhythmias Blood Disorder Hx: Hyperlipidemia Hx: Bladder Disorders (cancer right kidney) and Prostate Cancer HX: Yes Psych. Illness/Depression: No Questionnaires HAS-BLED Does the patient had uncontrolled Hypertension?: No Does the patient have renal disease?: No Does the patient have liver disease?: No Does the patient have a history of stroke?: No Has the patient had major bleeding or predisposition to bleeding?: No Does the patient have labile INRs?: Yes Is the patient over 65 years of age?: Yes Is the patient on medications that gives them a predisposition to bleeding?: Yes Does the patient use alcohol?: Yes HAS-BLED Score: 4 CHADSVASC Age: 75 or over Gender: Male Does the patient have a history of CHF?: Yes Does the patient have a history of Hypertension?: Yes Does the patient have a history of Stroke/TIA/Thromboembolism?: No Does the patient have a history of Vascular Disease (prior CA, PAD or aortic plaque)?: No Does the patient have a history of Diabetes?: No CHADS VACS Score: 4 Kathy Prediction Score Rsk VTE Active Cancer: No Previous VTE, excluding superficial vein thrombosis: No Reduced mobility: No Already known Thrombophilic Condition: No With-in last month Trauma and/or Surgery: No Elderly 70 year or older: Yes Heart and/or Respiratory Failure: No Acute Myocardial infarction and/or Ischemic Stroke: No Acute Infection and/or Rheumatologic Disorder: No Obesity (BMI 30 or greater): Yes Ongoing Hormonal Treatment: No Score: 2 Kathy Score less than 4; Low Risk of VTE Kathy Score 4 or greater; High Risk of VTE Coding Level of Care Code Est Patient Level 1 Diagnoses Current use of anticoagulant therapy Z79.01 Results AMB INR Fingerstick AMB INR Fingerstick 1.7 Last Edit by Mary Jo Oconnell RN on 10/15/24 07:57 manual entry Assessment & Plan Assessment & Plan (1) Current use of anticoagulant therapy: Code(s): Z79.01 - [facility] (current) use of anticoagulants Category: Medical
== END 2024-10-15 08:08 | disposition home or self-care (01) ==
LOC: HO.ACS 07:44
PROVIDERS: PCP Internal Medicine; Visit Provider Internal Medicine
DX: Z79.01 Long term (current) use of anticoagulants (principal)

== ENCOUNTER → 2024-10-15 07:44 | Outpatient (BNVA) | payer MEDICARE, BC, SELFPAY | PROVIDERS: PCP Internal Medicine; Visit Provider Internal Medicine | DX: I48.19 Other persistent atrial fibrillation (principal); Z79.01 Long term (current) use of anticoagulants; Z51.81 Encounter for therapeutic drug level monitoring | CPT/HCPCS: 85610; 99211 ==

== ENCOUNTER 2024-10-29 08:01 | Outpatient (AMB) | payer MEDICARE, BC, SELFPAY ==
--- NOTE | 2024-10-29 08:30 | MHC.OFFVISCO ---
Intake Intake Visit Reasons: Anticoagulation Allergies hydrochlorothiazide Adverse Reaction (Severe, Verified 10/29/24 08:19) muscle spasms WALTER Inhibitors Adverse Reaction (Intermediate, Verified 10/29/24 08:19) muscle spasms angiotensin receptor antagonist Allergy (Unknown, Uncoded 10/29/24 08:19) Unknown some statins Adverse Reaction (Intermediate, Uncoded 10/29/24 08:19) muscle spasms Medication List - Last Reconciled 10/29/24 by aMry Jo Oconnell RN carvedilol 12.5 mg PO BID cetirizine 10 mg PO DAILY cholecalciferol (vitamin D3) PO clotrimazole-betamethasone 1-0.05 % appl topical PRN furosemide 40 mg PO QAM hydrochlorothiazide 25 mg PO DAILY nitroglycerin mg sublingual simvastatin 40 mg PO QPM tamsulosin 0.4 mg PO DAILY warfarin 5 mg See Protocol PO DAILY Nursing Note INR 1.9 out of therapeutic range Medications and supplements reviewed Patient status: States he had broccoli and cauliflower soup, edema is down both may be effecting the INR - dose was increased 2 weeks ago Medications or supplements: no changes Diet: good Denies any signs and symptoms of bleeding or clotting or unusual bruising Bleeding, bruising, clotting discussed Nutritional guidance given: reminded cooked greens lower the INR more than raw greens Dose: keep same dose for now due to renal function 7.5mg x 3 days/ 5mg x 4 days F/U INR Date : 4 weeks - pt states unable to come back sooner will be staying in [facility] ?? Patient verbalizing understanding of instructions given with read back Anti-Coag Initial Assessment Social Hx Patient Tobacco Use Status: Former Tobacco user Tobacco use type: Cigarette alcohol intake: never Cardiovascular Hx: HTN, CHF and Arrhythmias Blood Disorder Hx: Hyperlipidemia Hx: Bladder Disorders (cancer right kidney) and Prostate Cancer HX: Yes Psych. 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
[2024-10-29 08:31] LABS: Prothrombin Time Whole Bld POC 22.6 sec (11.1-13.5); ~PT, ~INR - Anti Coag Clinic 1.9 (0.9-1.1)
== END 2024-10-29 08:33 | disposition home or self-care (01) ==
LOC: HO.ACS 08:01
PROVIDERS: PCP Internal Medicine; Visit Provider Internal Medicine
DX: Z79.01 Long term (current) use of anticoagulants (principal)

== ENCOUNTER → 2024-10-29 08:01 | Outpatient (BNVA) | payer MEDICARE, BC, SELFPAY | PROVIDERS: PCP Internal Medicine; Visit Provider Internal Medicine | DX: I48.19 Other persistent atrial fibrillation (principal); Z79.01 Long term (current) use of anticoagulants; Z51.81 Encounter for therapeutic drug level monitoring | CPT/HCPCS: 85610; 99211 ==

== ENCOUNTER 2024-11-26 07:59 | Outpatient (AMB) | payer MEDICARE, BC, SELFPAY ==
[2024-11-26 08:07] LABS: Prothrombin Time Whole Bld POC 22.9 sec (11.1-13.5); ~PT, ~INR - Anti Coag Clinic 1.9 (0.9-1.1)
--- NOTE | 2024-11-26 08:14 | MHC.OFFVISCO ---
Intake Intake Visit Reasons: Anticoagulation Allergies hydrochlorothiazide Adverse Reaction (Severe, Verified 11/26/24 07:59) muscle spasms WALTER Inhibitors Adverse Reaction (Intermediate, Verified 11/26/24 07:59) muscle spasms angiotensin receptor antagonist Allergy (Unknown, Uncoded 11/26/24 07:59) Unknown some statins Adverse Reaction (Intermediate, Uncoded 11/26/24 07:59) muscle spasms Medication List - Last Reconciled 11/26/24 by Mary Jo Oconnell RN carvedilol 12.5 mg PO BID cetirizine 10 mg PO DAILY cholecalciferol (vitamin D3) PO clotrimazole-betamethasone 1-0.05 % appl topical PRN furosemide 40 mg PO QAM hydrochlorothiazide 25 mg PO DAILY nitroglycerin mg sublingual simvastatin 40 mg PO QPM tamsulosin 0.4 mg PO DAILY warfarin 5 mg See Protocol PO DAILY Nursing Note INR 1.9 out of therapeutic range Medications and supplements reviewed Patient status: PSA ELEVATE - may be affecting INR - also had cabbage- eats differently at [facility] house Medications or supplements: no change Diet: good Denies any signs and symptoms of bleeding or clotting or unusual bruising Bleeding, bruising, clotting discussed Nutritional guidance given: remember orange and reds when eating greens Dose: increase 7.5mg x 4 days this week then resume usual dose F/U INR Date : 2 weeks due to low INR ?? Patient verbalizing understanding of instructions given. Anti-Coag Initial Assessment Social Hx Patient Tobacco Use Status: Former Tobacco user Tobacco use type: Cigarette alcohol intake: never Cardiovascular Hx: HTN, CHF and Arrhythmias Blood Disorder Hx: Hyperlipidemia Hx: Bladder Disorders (cancer right kidney) and Prostate Cancer HX: Yes Psych. Illness/Depression: No Coding Level of Care Code Est Patient Level 1 Diagnoses Current use of anticoagulant therapy Z79.01 Results AMB INR Fingerstick AMB INR Fingerstick 1.9 Last Edit by Mary Jo Oconnell RN on 11/26/24 08:08 MANUAL ENTRY Assessment & Plan Assessment & Plan (1) Current use of anticoagulant therapy: Code(s): Z79.01 - parts counterman (current) use of anticoagulants Category: Medical
== END 2024-11-26 08:18 | disposition home or self-care (01) ==
LOC: HO.ACS 07:59
PROVIDERS: PCP Internal Medicine; Visit Provider Internal Medicine Medical Oncology
DX: Z79.01 Long term (current) use of anticoagulants (principal)

== ENCOUNTER → 2024-11-26 07:59 | Outpatient (BNVA) | payer MEDICARE, BC, SELFPAY | PROVIDERS: PCP Internal Medicine; Visit Provider Internal Medicine Medical Oncology | DX: I48.19 Other persistent atrial fibrillation (principal); Z51.81 Encounter for therapeutic drug level monitoring; Z79.01 Long term (current) use of anticoagulants | CPT/HCPCS: 85610; 99211 ==

== ENCOUNTER 2024-12-10 07:51 | Outpatient (AMB) | payer MEDICARE, BC, SELFPAY ==
[2024-12-10 08:08] LABS: Prothrombin Time Whole Bld POC 22.6 sec (11.1-13.5); ~PT, ~INR - Anti Coag Clinic 1.9 (0.9-1.1)
--- NOTE | 2024-12-10 08:16 | MHC.OFFVISCO ---
Intake Intake Visit Reasons: Anticoagulation Allergies hydrochlorothiazide Adverse Reaction (Severe, Verified 12/10/24 08:01) muscle spasms WALTER Inhibitors Adverse Reaction (Intermediate, Verified 12/10/24 08:01) muscle spasms angiotensin receptor antagonist Allergy (Unknown, Uncoded 12/10/24 08:01) Unknown some statins Adverse Reaction (Intermediate, Uncoded 12/10/24 08:01) muscle spasms Medication List - Last Reconciled 12/10/24 by Mary Jo Oconnell RN carvedilol 12.5 mg PO BID cetirizine 10 mg PO DAILY cholecalciferol (vitamin D3) PO clotrimazole-betamethasone 1-0.05 % appl topical PRN furosemide 40 mg PO QAM hydrochlorothiazide 25 mg PO DAILY nitroglycerin mg sublingual simvastatin 40 mg PO QPM tamsulosin 0.4 mg PO DAILY warfarin 5 mg See Protocol PO DAILY Nursing Note INR: 1.9 out of therapeutic range Medications and supplements reviewed-no changes gave up red wine for lent and that may be why INR dowm No changes in health, medications, or supplements, Denies any signs and symptoms of bleeding or bruising or clotting. Bleeding, bruising, clotting discussed Nutritional guidance given Dose: increase dose 7.5mg x 4 days/ 5mg mwf F/U INR: 2 weeks Patient verbalizes understanding of instructions given Anti-Coag Initial Assessment Social Hx Patient Tobacco Use Status: Former Tobacco user Tobacco use type: Cigarette alcohol intake: never Cardiovascular Hx: HTN, CHF and Arrhythmias Blood Disorder Hx: Hyperlipidemia Hx: Bladder Disorders (cancer right kidney) and Prostate Cancer HX: Yes Psych. Illness/Depression: No Coding Level of Care Code Est Patient Level 1 Diagnoses Current use of anticoagulant therapy Z79.01 Assessment & Plan Assessment & Plan (1) Current use of anticoagulant therapy: Code(s): Z79.01 - intermediate teacher (current) use of anticoagulants Category: Medical
== END 2024-12-10 08:19 | disposition home or self-care (01) ==
LOC: HO.ACS 07:51
PROVIDERS: PCP Internal Medicine; Visit Provider Internal Medicine
DX: Z79.01 Long term (current) use of anticoagulants (principal)

== ENCOUNTER → 2024-12-10 07:51 | Outpatient (BNVA) | payer MEDICARE, BC, SELFPAY | PROVIDERS: PCP Internal Medicine; Visit Provider Internal Medicine | DX: I48.19 Other persistent atrial fibrillation (principal); Z79.01 Long term (current) use of anticoagulants; Z51.81 Encounter for therapeutic drug level monitoring | CPT/HCPCS: 85610; 99211 ==

== ENCOUNTER 2024-12-25 08:03 | Outpatient (AMB) | payer MEDICARE, BC, SELFPAY ==
--- NOTE | 2024-12-25 08:27 | MHC.OFFVISCO ---
Intake Intake Visit Reasons: Anticoagulation Allergies hydrochlorothiazide Adverse Reaction (Severe, Verified 12/25/24 08:08) muscle spasms WALTER Inhibitors Adverse Reaction (Intermediate, Verified 12/25/24 08:08) muscle spasms angiotensin receptor antagonist Allergy (Unknown, Uncoded 12/25/24 08:08) Unknown some statins Adverse Reaction (Intermediate, Uncoded 12/25/24 08:08) muscle spasms Medication List - Last Reconciled 12/25/24 by Karma Haile RN carvedilol 12.5 mg PO BID cetirizine 10 mg PO DAILY cholecalciferol (vitamin D3) PO clotrimazole-betamethasone 1-0.05 % appl topical PRN furosemide 40 mg PO QAM hydrochlorothiazide 25 mg PO DAILY nitroglycerin mg sublingual simvastatin 40 mg PO QPM tamsulosin 0.4 mg PO DAILY warfarin 5 mg See Protocol PO DAILY Nursing Note AMb to [facility] feeling well Medications and supplements reviewed sts he really hasn't started his Red wine again after t and over , sts once I stopped, got out of the habit, don't really want No other changes in health, diet, medications, or supplements, Denies any signs and symptoms of bleeding, bruising,or clotting. Bleeding, bruising, clotting discussed INR 1.7 below therapeutic range, thinks he might of also had greens over the Holiday Dose: increase warfarin today to 10mg then resume dosing 5mg x 3 days and 7.5mg x 4 days no greens x 2 days then balance F/U INR: 1 week Patient verbalizes understanding of instructions given Anti-Coag Initial Assessment Social Hx Patient Tobacco Use Status: Former Tobacco user Tobacco use type: Cigarette alcohol intake: never Cardiovascular Hx: HTN, CHF and Arrhythmias Blood Disorder Hx: Hyperlipidemia Hx: Bladder Disorders (cancer right kidney) and Prostate Cancer HX: Yes Psych. Illness/Depression: No Coding Level of Care Code Est Patient Level 1 Diagnoses Current use of anticoagulant therapy Z79.01 Time Spent (min) 15 Results AMB INR Fingerstick AMB INR Fingerstick 1.7 Last Edit by Karma Haile RN on 12/25/24 08:26 interface failure Assessment & Plan Assessment & Plan (1) Current use of anticoagulant therapy: Code(s): Z79.01 - [facility] (current) use of anticoagulants Category: Medical
[2024-12-25 08:29] LABS: Prothrombin Time Whole Bld POC 19.9 sec (11.1-13.5); ~PT, ~INR - Anti Coag Clinic 1.7 (0.9-1.1)
== END 2024-12-25 08:46 | disposition home or self-care (01) ==
LOC: HO.ACS 08:03
PROVIDERS: PCP Internal Medicine; Visit Provider Internal Medicine Medical Oncology
DX: Z79.01 Long term (current) use of anticoagulants (principal)

== ENCOUNTER → 2024-12-25 08:03 | Outpatient (BNVA) | payer MEDICARE, BC, SELFPAY | PROVIDERS: PCP Internal Medicine; Visit Provider Internal Medicine Medical Oncology | DX: I48.19 Other persistent atrial fibrillation (principal); Z79.01 Long term (current) use of anticoagulants; Z51.81 Encounter for therapeutic drug level monitoring | CPT/HCPCS: 85610; 99211 ==

== ENCOUNTER 2025-01-01 08:08 | Outpatient (AMB) | payer MEDICARE, BC, SELFPAY ==
--- NOTE | 2025-01-01 08:30 | MHC.OFFVISCO ---
Intake Intake Visit Reasons: Anticoagulation Allergies hydrochlorothiazide Adverse Reaction (Severe, Verified 01/01/25 08:20) muscle spasms WALTER Inhibitors Adverse Reaction (Intermediate, Verified 01/01/25 08:20) muscle spasms angiotensin receptor antagonist Allergy (Unknown, Uncoded 01/01/25 08:20) Unknown some statins Adverse Reaction (Intermediate, Uncoded 01/01/25 08:20) muscle spasms Medication List - Last Reconciled 01/01/25 by Karma Ovalles RN carvedilol 12.5 mg PO BID cetirizine 10 mg PO DAILY cholecalciferol (vitamin D3) PO clotrimazole-betamethasone 1-0.05 % appl topical PRN furosemide 40 mg PO QAM hydrochlorothiazide 25 mg PO DAILY nitroglycerin mg sublingual simvastatin 40 mg PO QPM tamsulosin 0.4 mg PO DAILY warfarin 5 mg See Protocol PO DAILY Nursing Note INR: 2.2 in therapeutic range of 2-3 Medications and supplements reviewed No changes in health, diet, medications, or supplements, Denies any signs and symptoms of bleeding or bruising or clotting. Bleeding, bruising, clotting discussed Nutritional guidance given Dose: 7.5mg X 4 days and 5mg X 3 days (M/W/F) F/U INR: 2 weeks Patient verbalizes understanding of instructions given Anti-Coag Initial Assessment Social Hx Patient Tobacco Use Status: Former Tobacco user Tobacco use type: Cigarette alcohol intake: never Cardiovascular Hx: HTN, CHF and Arrhythmias Blood Disorder Hx: Hyperlipidemia Hx: Bladder Disorders (cancer right kidney) and Prostate Cancer HX: Yes Psych. Illness/Depression: No Coding Level of Care Code Est Patient Level 1 Diagnoses Current use of anticoagulant therapy Z79.01 Results AMB INR Fingerstick AMB INR Fingerstick 2.2 Last Edit by Karma Ovalles RN on 01/01/25 08:29 interface delay Assessment & Plan Assessment & Plan (1) Current use of anticoagulant therapy: Code(s): Z79.01 - terminal gauger (current) use of anticoagulants Category: Medical
[2025-01-01 08:34] LABS: Prothrombin Time Whole Bld POC 25.9 sec (11.1-13.5); ~PT, ~INR - Anti Coag Clinic 2.2 (0.9-1.1)
== END 2025-01-01 08:34 | disposition home or self-care (01) ==
LOC: HO.ACS 08:08
PROVIDERS: PCP Internal Medicine; Visit Provider Internal Medicine Medical Oncology
DX: Z79.01 Long term (current) use of anticoagulants (principal)

== ENCOUNTER → 2025-01-01 08:08 | Outpatient (BNVA) | payer MEDICARE, BC, SELFPAY | PROVIDERS: PCP Internal Medicine; Visit Provider Internal Medicine Medical Oncology | DX: I48.19 Other persistent atrial fibrillation (principal); Z79.01 Long term (current) use of anticoagulants; Z51.81 Encounter for therapeutic drug level monitoring | CPT/HCPCS: 85610; 99211 ==

== ENCOUNTER 2025-01-22 08:05 | Outpatient (AMB) | payer MEDICARE, BC, SELFPAY ==
[2025-01-22 08:22] LABS: Prothrombin Time Whole Bld POC 38.9 sec (11.1-13.5); ~PT, ~INR - Anti Coag Clinic 3.2 (0.9-1.1)
--- NOTE | 2025-01-22 08:26 | MHC.OFFVISCO ---
Intake Intake Visit Reasons: Anticoagulation Allergies hydrochlorothiazide Adverse Reaction (Severe, Verified 01/22/25 08:13) muscle spasms WALTER Inhibitors Adverse Reaction (Intermediate, Verified 01/22/25 08:13) muscle spasms angiotensin receptor antagonist Allergy (Unknown, Uncoded 01/22/25 08:13) Unknown some statins Adverse Reaction (Intermediate, Uncoded 01/22/25 08:13) muscle spasms Medication List - Last Reconciled 01/22/25 by Mary Jo Oconnell RN carvedilol 12.5 mg PO BID cetirizine 10 mg PO DAILY cholecalciferol (vitamin D3) PO clotrimazole-betamethasone 1-0.05 % appl topical PRN furosemide 40 mg PO QAM hydrochlorothiazide 25 mg PO DAILY nitroglycerin mg sublingual simvastatin 40 mg PO QPM tamsulosin 0.4 mg PO DAILY warfarin See Protocol 7.5mg x 5 days /5mg x 2 days orally daily; uses 5mg tabs Nursing Note INR: 3.2 almost therapeutic range- has been having very small glass of red wine in the evening - can raise the INR Medications and supplements reviewed No changes in health, medications, or supplements, Denies any signs and symptoms of bleeding or bruising or clotting. Bleeding, bruising, clotting discussed Nutritional guidance given-eat a little more cooked greens to lower the INR and or decrease red wine Dose: keep same for now- 5mg x 3 days/ 7.5mg x 4 days F/U INR: 4 weeks per pt request Patient verbalizes understanding of instructions given Anti-Coag Initial Assessment Social Hx Patient Tobacco Use Status: Former Tobacco user Tobacco use type: Cigarette alcohol intake: never Cardiovascular Hx: HTN, CHF and Arrhythmias Blood Disorder Hx: Hyperlipidemia Hx: Bladder Disorders (cancer right kidney) and Prostate Cancer HX: Yes Psych. Illness/Depression: No Coding Level of Care Code Est Patient Level 1 Diagnoses Current use of anticoagulant therapy Z79.01 Results AMB INR Fingerstick AMB INR Fingerstick 3.2 Last Edit by Mary Jo Oconnell RN on 01/22/25 08:22 MANUAL ENTRY Assessment & Plan Assessment & Plan (1) Current use of anticoagulant therapy: Code(s): Z79.01 - intermediate school teacher (current) use of anticoagulants Category: Medical Medications: Changed From warfarin See Protocol 7.5mg x 5 days /5mg x 2 days orally daily; uses 5mg tabs To warfarin See Protocol 7.5mg x 4 days /5mg x 3 days orally daily; uses 5mg tabs
== END 2025-01-22 08:29 | disposition home or self-care (01) ==
LOC: HO.ACS 08:05
PROVIDERS: PCP Internal Medicine; Visit Provider Internal Medicine Medical Oncology
DX: Z79.01 Long term (current) use of anticoagulants (principal)

== ENCOUNTER → 2025-01-22 08:05 | Outpatient (BNVA) | payer MEDICARE, BC, SELFPAY | PROVIDERS: PCP Internal Medicine; Visit Provider Internal Medicine Medical Oncology | DX: I48.19 Other persistent atrial fibrillation (principal); Z79.01 Long term (current) use of anticoagulants; Z51.81 Encounter for therapeutic drug level monitoring | CPT/HCPCS: 85610; 99211 ==

== ENCOUNTER 2025-02-18 07:55 | Outpatient (AMB) | payer MEDICARE, BC, SELFPAY ==
--- NOTE | 2025-02-18 08:07 | MHC.OFFVISCO ---
Intake Intake Visit Reasons: Anticoagulation Allergies hydrochlorothiazide Adverse Reaction (Severe, Verified 02/18/25 08:03) muscle spasms WALTER Inhibitors Adverse Reaction (Intermediate, Verified 02/18/25 08:03) muscle spasms angiotensin receptor antagonist Allergy (Unknown, Uncoded 02/18/25 08:03) Unknown some statins Adverse Reaction (Intermediate, Uncoded 02/18/25 08:03) muscle spasms Medication List - Last Reconciled 02/18/25 by Corry Weaver RN carvedilol 12.5 mg PO BID cetirizine 10 mg PO DAILY cholecalciferol (vitamin D3) PO clotrimazole-betamethasone 1-0.05 % appl topical PRN furosemide 40 mg PO QAM hydrochlorothiazide 25 mg PO DAILY nitroglycerin mg sublingual simvastatin 40 mg PO QPM tamsulosin 0.4 mg PO DAILY warfarin See Protocol 7.5mg x 4 days /5mg x 3 days orally daily; uses 5mg tabs Nursing Note INR: 3.0- in therapeutic range of 2-3 Medications and supplements reviewed No changes in health, diet, medications, or supplements, Denies any signs and symptoms of bleeding or bruising or clotting. Bleeding, bruising, clotting discussed Nutritional guidance given Dose: 5mg x3, 7.5mg x 4 F/U INR: 4 weeks Patient verbalizes understanding of instructions given pt with c.o toe pain after trauma- he states went to ed and had neg xrays he is questioning gout and will call pcp today regarding this. pt aware to call acs with any med changes Anti-Coag Initial Assessment Social Hx Patient Tobacco Use Status: Former Tobacco user Tobacco use type: Cigarette alcohol intake: never Cardiovascular Hx: HTN, CHF and Arrhythmias Blood Disorder Hx: Hyperlipidemia Hx: Bladder Disorders (cancer right kidney) and Prostate Cancer HX: Yes Psych. Illness/Depression: No Coding Level of Care Code Est Patient Level 1 Diagnoses Current use of anticoagulant therapy Z79.01 Assessment & Plan Assessment & Plan (1) Current use of anticoagulant therapy: Code(s): Z79.01 - jail (current) use of anticoagulants Category: Medical
[2025-02-18 08:08] LABS: Prothrombin Time Whole Bld POC 35.6 sec (11.1-13.5)
== END 2025-02-18 08:16 | disposition home or self-care (01) ==
LOC: HO.ACS 07:55
PROVIDERS: PCP Internal Medicine; Visit Provider Internal Medicine Medical Oncology
DX: Z79.01 Long term (current) use of anticoagulants (principal)

== ENCOUNTER → 2025-02-18 07:55 | Outpatient (BNVA) | payer MEDICARE, BC, SELFPAY | PROVIDERS: PCP Internal Medicine; Visit Provider Internal Medicine Medical Oncology | DX: I48.19 Other persistent atrial fibrillation (principal); Z79.01 Long term (current) use of anticoagulants; Z51.81 Encounter for therapeutic drug level monitoring | CPT/HCPCS: 85610; 99211 ==

== ENCOUNTER 2025-03-18 08:00 | Outpatient (AMB) | payer MEDICARE, BC, SELFPAY ==
[2025-03-18 08:09] LABS: Prothrombin Time Whole Bld POC 19.3 sec (11.1-13.5); ~PT, ~INR - Anti Coag Clinic 1.6 (0.9-1.1)
--- NOTE | 2025-03-18 08:14 | MHC.OFFVISCO ---
Intake Intake Visit Reasons: Anticoagulation Allergies hydrochlorothiazide Adverse Reaction (Severe, Verified 03/18/25 08:02) muscle spasms WALTER Inhibitors Adverse Reaction (Intermediate, Verified 03/18/25 08:02) muscle spasms angiotensin receptor antagonist Allergy (Unknown, Uncoded 03/18/25 08:02) Unknown some statins Adverse Reaction (Intermediate, Uncoded 03/18/25 08:02) muscle spasms Medication List - Last Reconciled 03/18/25 by Karma Ovalles RN allopurinol 200 mg PO DAILY carvedilol 12.5 mg PO BID cetirizine 10 mg PO DAILY cholecalciferol (vitamin D3) PO clotrimazole-betamethasone 1-0.05 % appl topical PRN furosemide 40 mg PO QAM hydrochlorothiazide 25 mg PO DAILY nitroglycerin mg sublingual simvastatin 40 mg PO QPM tamsulosin 0.4 mg PO DAILY warfarin See Protocol 7.5mg x 4 days /5mg x 3 days orally daily; uses 5mg tabs Nursing Note INR: 1.6 out of therapeutic range of 2-3 Pt denies missed dose. States he had cabbage yesterday. 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 This med can raise the INR. Will monitor pt closer. Diet: usual diet for pt Denies any signs and symptoms of bleeding or clotting or unusual bruising Bleeding, bruising, clotting discussed Nutritional guidance given: to avoid greens today and to have a serving of foods that raise the INR Dose: 7.5mg X 4 days and 5mg X 3 days F/U INR Date: 2 weeks? Patient verbalizing understanding of instructions given. Anti-Coag Initial Assessment Social Hx Patient Tobacco Use Status: Former Tobacco user Tobacco use type: Cigarette alcohol intake: never Cardiovascular Hx: HTN, CHF and Arrhythmias Blood Disorder Hx: Hyperlipidemia Hx: Bladder Disorders (cancer right kidney) and Prostate Cancer HX: Yes Psych. 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
== END 2025-03-18 08:18 | disposition home or self-care (01) ==
LOC: HO.ACS 08:00
PROVIDERS: PCP Internal Medicine; Visit Provider Internal Medicine Medical Oncology
DX: Z79.01 Long term (current) use of anticoagulants (principal)

== ENCOUNTER → 2025-03-18 08:00 | Outpatient (BNVA) | payer MEDICARE, BC, SELFPAY | PROVIDERS: PCP Internal Medicine; Visit Provider Internal Medicine Medical Oncology | DX: I48.19 Other persistent atrial fibrillation (principal); Z79.01 Long term (current) use of anticoagulants; Z51.81 Encounter for therapeutic drug level monitoring | CPT/HCPCS: 85610; 99211 ==

== ENCOUNTER 2025-04-01 08:07 | Outpatient (AMB) | payer MEDICARE, BC, SELFPAY ==
[2025-04-01 08:20] LABS: Prothrombin Time Whole Bld POC 28.0 sec (11.1-13.5); ~PT, ~INR - Anti Coag Clinic 2.3 (0.9-1.1)
--- NOTE | 2025-04-01 08:23 | MHC.OFFVISCO ---
Intake Intake Visit Reasons: Anticoagulation Allergies hydrochlorothiazide Adverse Reaction (Severe, Verified 04/01/25 08:14) muscle spasms WALTER Inhibitors Adverse Reaction (Intermediate, Verified 04/01/25 08:14) muscle spasms angiotensin receptor antagonist Allergy (Unknown, Uncoded 04/01/25 08:14) Unknown some statins Adverse Reaction (Intermediate, Uncoded 04/01/25 08:14) muscle spasms Medication List - Last Reconciled 04/01/25 by Mary Jo Oconnell RN allopurinol 200 mg PO DAILY carvedilol 12.5 mg PO BID cetirizine 10 mg PO DAILY cholecalciferol (vitamin D3) PO clotrimazole-betamethasone 1-0.05 % appl topical PRN furosemide 40 mg PO DAILY hydrochlorothiazide 25 mg PO DAILY nitroglycerin mg sublingual simvastatin 40 mg PO QPM tamsulosin 0.4 mg PO DAILY warfarin See Protocol 7.5mg x 4 days /5mg x 3 days orally daily; uses 5mg tabs Nursing Note INR: 2.3 in therapeutic range Medications and supplements reviewed on Gout med x 1 month- diet discussed Denies any signs and symptoms of bleeding or bruising or clotting. Bleeding, bruising, clotting discussed Nutritional guidance given Dose: 5mg x 3 days/ 7.5mg x 4 days F/U INR: 2 weeks Patient verbalizes understanding of instructions given Anti-Coag Initial Assessment Social Hx Patient Tobacco Use Status: Former Tobacco user Tobacco use type: Cigarette alcohol intake: never Cardiovascular Hx: HTN, CHF and Arrhythmias Blood Disorder Hx: Hyperlipidemia Hx: Bladder Disorders (cancer right kidney) and Prostate Cancer HX: Yes Psych. Illness/Depression: No Coding Level of Care Code Est Patient Level 1 Diagnoses Current use of anticoagulant therapy Z79.01 Assessment & Plan Assessment & Plan (1) Current use of anticoagulant therapy: Code(s): Z79.01 - prison (current) use of anticoagulants Category: Medical
== END 2025-04-01 08:30 | disposition home or self-care (01) ==
LOC: HO.ACS 08:07
PROVIDERS: PCP Internal Medicine; Visit Provider Internal Medicine Medical Oncology
DX: Z79.01 Long term (current) use of anticoagulants (principal)

== ENCOUNTER → 2025-04-01 08:07 | Outpatient (BNVA) | payer MEDICARE, BC, SELFPAY | PROVIDERS: PCP Internal Medicine; Visit Provider Internal Medicine Medical Oncology | DX: I48.19 Other persistent atrial fibrillation (principal); Z79.01 Long term (current) use of anticoagulants; Z51.81 Encounter for therapeutic drug level monitoring | CPT/HCPCS: 85610; 99211 ==

== ENCOUNTER 2025-04-15 08:00 | Outpatient (AMB) | payer MEDICARE, BC, SELFPAY ==
--- OUTSIDE RECORDS SUMMARY | 2025-04-15 08:01 | XMS_ITS | Encounter Summary ---
Author Organization [facility] Address [address] [facility] [address] [place] [address] Phone Care Team Providers Care Public Relations Analyst Name Role Phone Beka Schwartz MD Primary Care Provider [phone] Encounter Details Date Type Department Care Team (Late st Contact Info) Description 11/04/2022 Procedure Pass [facility] [address] [place] [address] Social History Tobacco Use Types Packs/Day Years Used Date Smoking Tobacco: Never Smokeless Tobacco: Never Alcohol Use Standard Drinks/Week Comments Not Currently 0 (1 standard drink = 0.6 oz pur e alcohol) Sex and Gender Information Value Date Recorded Sex Assigned at Male 12/07/2021 9:53 AM EDT Legal Sex Male 5:55 PM EST Gender Identity Male 12/07/2021 9:53 AM EDT Sexual Orientation Straight 12/07/2021 9: 53 AM EDT documented as of this encounter Plan of Treatment Not on file documented as of this encounter Visit Diagnoses Not on filedocumented in this encounter Care Teams Public Relations Analyst Relationship Specialty Start Date End Date Beka Schwartz MD [address] [place] [address] [place] [id number] PCP - General Internal Medicine 08/28/18 documented as of this encounter Additional Source Comments The information contained in this document represents components of the legal health record. It is not the complete legal health record.[facility]
[2025-04-15 08:23] LABS: Prothrombin Time Whole Bld POC 31.6 sec (11.1-13.5); ~PT, ~INR - Anti Coag Clinic 2.6 (0.9-1.1)
--- NOTE | 2025-04-15 08:27 | MHC.OFFVISCO ---
Intake Intake Visit Reasons: Anticoagulation Allergies hydrochlorothiazide Adverse Reaction (Severe, Verified 04/15/25 08:15) muscle spasms WALTER Inhibitors Adverse Reaction (Intermediate, Verified 04/15/25 08:15) muscle spasms angiotensin receptor antagonist Allergy (Unknown, Uncoded 04/15/25 08:15) Unknown some statins Adverse Reaction (Intermediate, Uncoded 04/15/25 08:15) muscle spasms Medication List - Last Reconciled 04/15/25 by Karma Ovalles RN allopurinol 200 mg PO DAILY carvedilol 12.5 mg PO BID cetirizine 10 mg PO DAILY cholecalciferol (vitamin D3) PO clotrimazole-betamethasone 1-0.05 % appl topical PRN finasteride 5 mg PO DAILY furosemide 40 mg PO DAILY hydrochlorothiazide 25 mg PO DAILY nitroglycerin mg sublingual simvastatin 40 mg PO QPM tamsulosin 0.4 mg PO DAILY warfarin See Protocol 7.5mg x 4 days /5mg x 3 days orally daily; uses 5mg tabs Nursing Note INR: 2.6 in therapeutic range of 2-3 Medications and supplements reviewed No changes in health, diet, medications, or supplements, Denies any signs and symptoms of bleeding or bruising or clotting. Bleeding, bruising, clotting discussed Nutritional guidance given Dose: 7.5mg X 4 days and 5mg X 3 days F/U INR: 3 weeks Patient verbalizes understanding of instructions given Anti-Coag Initial Assessment Social Hx Patient Tobacco Use Status: Former Tobacco user Tobacco use type: Cigarette alcohol intake: never Cardiovascular Hx: HTN, CHF and Arrhythmias Blood Disorder Hx: Hyperlipidemia Hx: Bladder Disorders (cancer right kidney) and Prostate Cancer HX: Yes Psych. Illness/Depression: No Coding Level of Care Code Est Patient Level 1 Diagnoses Current use of anticoagulant therapy Z79.01 Assessment & Plan Assessment & Plan (1) Current use of anticoagulant therapy: Code(s): Z79.01 - residential (current) use of anticoagulants Category: Medical
== END 2025-04-15 08:32 | disposition home or self-care (01) ==
LOC: HO.ACS 08:00
PROVIDERS: PCP Internal Medicine; Visit Provider Internal Medicine Medical Oncology
DX: Z79.01 Long term (current) use of anticoagulants (principal)

== ENCOUNTER → 2025-04-15 08:00 | Outpatient (BNVA) | payer MEDICARE, BC, SELFPAY | PROVIDERS: PCP Internal Medicine; Visit Provider Internal Medicine Medical Oncology | DX: Z51.81 Encounter for therapeutic drug level monitoring (principal); Z79.01 Long term (current) use of anticoagulants | CPT/HCPCS: 85610; 99211 ==

== ENCOUNTER 2025-05-07 07:50 | Outpatient (AMB) | payer MEDICARE, BC, SELFPAY ==
--- OUTSIDE RECORDS SUMMARY | 2025-05-07 07:53 | XMS_ITS | Encounter Summary ---
Author Organization [facility] Address [address] [place] [address] Phone Care Team Providers Care Nutritional Health Coach Name Role Phone Beka Schwartz MD Primary Care Provider [phone] Encounter Details Date Type Department Care Team (Late st Contact Info) Description 10/11/2022 Procedure Pass [facility] [address] [place] [address] Social History Tobacco Use Types Packs/Day Years [...] on filedocumented in this encounter Care Teams Nutritional Health Coach Relationship Specialty Start Date End Date Beka Schwartz MD [address] [place] [address] [address] [place] [address] PCP - General Internal Medicine 08/28/18 documented as of this encounter Additional Source Comments The information contained in this document represents components of the legal health record. It is not the complete legal health record.[facility]
--- OUTSIDE RECORDS SUMMARY | 2025-05-07 07:53 | XMS_ITS | Encounter Summary ---
Author Organization [facility] Address [address] [facility] [address] [place] [id number] Phone Care Team Providers Care Family Court Registrar Name Role Phone Beka Schwartz MD Primary Care Provider [phone] Encounter Details Date Type Department Care Team (Late st Contact Info) Description 11/04/2022 Procedure Pass [facility] [address] [address] [place] [address] Social History Tobacco Use Types Packs/Day Years [...] on filedocumented in this encounter Care Teams Family Court Registrar Relationship Specialty Start Date End Date Beka Schwartz MD [address] [place] [address] [place] [id number] PCP - General Internal Medicine 08/28/18 documented as of this encounter Additional Source Comments The information contained in this document represents components of the legal health record. It is not the complete legal health record.[facility]
--- OUTSIDE RECORDS SUMMARY | 2025-05-07 07:53 | XMS_ITS | Clinical Summary ---
Author Organization [facility] Address [address] [place] [address] Phone Care Team Providers Care Central Sterile Tech Name Role Phone Beka Schwartz MD Primary Care Provider +1 [phone] Allergies Active Allergy Reactions Criticality Noted Date Comments Atorvastatin Other (See Comments) 01/13/2011 Bad neck pains Lisinopril Rash Low 10/05/2022 Metoprolol Succinate Rash Low 10/05/2022 Medications carvedilol (COREG) 12.5 MG tablet 2 (two) times a day. 09/28/2022 Active fluoride, sodium, (PREVIDENT) 1.1 % Gel BRUSH SMALL AMOUNT TO TEETH TWICE DAILY 01/25/2022 Active rosuvastatin (CRESTOR) 40 MG tablet nightly at bedtime. 09/09/2022 Active warfarin (COUMADIN) 5 MG tablet Take 5 mg by mouth daily. Active spironolactone (ALDACTONE) 25 MG tablet Take 25 mg by mouth daily. Active tamsulosin (FLOMAX) 0.4 mg Cap Take 0.4 mg by mouth daily. Active hydroCHLOROthia zide (HYDRODIURIL) 25 MG tablet Take 25 mg by mouth daily. Active oxyCODONE 5 MG immediate release tablet Take 1 tablet (5 mg total) by mouth every 4 (four) hours as needed. Partial fill ok 15 tablet 11/04/2022 Active Active Problems Problem Noted Date Diagnosed Date Hyperlipidemia 10/28/2022 Coronary artery disease 10/28/2022 Overview (10/28/2022): 4V CABG 02/2007: GREY-LAD, SVG-OM, PDA, Diag. Cath 07/2020: Patent GREY-LAD, SVG- PDA. Occluded SVG-OM, Occluded SVG-Diag. PDA stenosis distal to graft, MARY to PDA at that time. Renal mass 10/28/2022 Paroxysmal atrial fibrillation 10/28/2022 Neoplasm of right kidney 10/11/2022 Atrial fibrillation 10/05/2022 Nonexudative age-related mac ular degeneration, bilateral, early dry stage 10/05/2022 CHF (congestive heart failure) 07/21/2020 NSTEMI (non-ST elevated myocardial infarction) 1 09/20/2019 Hypertensive disorder 03/29/2011 Overview (10/26/2014): Hypertension Hypercholesterolemia 03/29/2011 Overview (10/26/2014): Hypercholesterolemia Social History Tobacco Use Types Packs/Day Years Used Date Smoking Tobacco: Never Smokeless Tobacco: Never Alcohol Use Standard Drinks/Week Comments Not Currently 0 (1 standard drink = 0.6 oz pur e alcohol) Education Answer Date Recorded Are you interested in more education? Not on tere e 01/08/2023 Are you concerned about learning? Not on file 01/08/2023 No 01/08/2023 No 01/08/2023 Digital Access Answer Date Recorded No 01/30/2023 No 01/30/2023 Reliable internet access at home? Not on file 01/30/2023 Device with a working camera? Not on file Sex and Gender Information Value Date Recorded Sex Assigned at Male 12/07/2021 9:53 AM EDT Legal Sex Male 5:55 PM EST Gender Identity Male 12/07/2021 9:53 AM EDT Sexual Orientation Straight 12/07/2021 9: 53 AM EDT Last Filed Vital Signs Vital Sign Reading Time Taken Comments Blood Pressure 155/75 11/04/2022 5:05 PM EST Pulse 93 11/04/2022 5:05 PM EST Temperature 36.6 C (97.8 F) 11/04/2022 5:05 PM EST Respiratory Rate 16 11/04/2022 5:05 PM EST Oxygen Saturation 96% 11/04/2022 5:05 PM EST Inhaled Oxygen Concentration - - Weight 109.8 kg (242 lb) 10/28/2022 4:23 PM EST Height 172.7 cm (5' 8 ) 10/28/2022 4:23 PM EST Body Mass Index 36.8 10/28/2022 4:23 PM EST Plan of Treatment Health Maintenance Due Date Last Done Comments Adult Td,Tdap Booster 1945 HEPATITIS C SCREENING 1964 PNEUMOCOCCAL VACCINES (50+ years) (1 of 2 - PCV) 1965 ZOSTER VACCINES (1 of 2) 1996 RSV VACCINE (1 - 1-dose 75+ series) 2021 BLOOD PRESSURE 04/04/2023 10/05/2022 DEPRESSION SCREENING 09/28/2023 09/28/2022 POTASSIUM LEVEL 10/29/2023 10/29/2022, 07/22/2020 COVID-19 VACCINE ( - 2023-2 5 season) 2024 SMOKING STATUS SCREENING (On ce After 26 Yrs) Completed 10/28/2022 HEPATITIS A VACCINES Aged Out No long er eligible based on patient's age to complete this topic HIB VACCINES Aged Out No longer eligi ble based on patient's age to complete this topic MENINGOCOCCAL VACCINES (ACWY) Aged Out No longer eligible based on patient's age to complete this topic MENINGOCOCCAL VACCINES (B) Aged Out N o longer eligible based on patient's age to complete this topic Medical Devices Not on file Procedures Procedure Name Priority Date/Time Associated Diagnosis Comments BASIC METABOLIC PANEL Routine 10/29/2022 11:22 AM EST Preop examination from Last 3 Months or Most Recently Relevant to Health Maintenance Results * Basic metabolic panel (10/29/2022 11:22 AM EST) SODIUM 141 135 - 145 mmol/L [facility] POTASSIUM 4.7 3.4 - 5.0 mmol/L [facility] CHLORIDE 105 98 - 108 mmol/L [facility] CO2 28 23 - 32 mmol/L [facility] BUN 25 8 - 25 mg/dL [facility] CREATININE 0.94 0.60 - 1.50 mg/dL [facility] GLUCOSE 96 70 - 110 mg/dL [facility] CALCIUM 9.5 8.5 - 10.5 mg/dL [facility] EGFR 84 >59 mL/min/1.7 3m2 [facility] Comment:Estimated glomerular filtration rate calculated using the CKD-EPI refit equation. ANION GAP 8 3 - 17 mmol/L [facility] 10/29/2022 11:2 2 AM EST 10/29/2022 11:36 AM EST us Sonny Pablo MD LAB BLOOD ORDERABLES Final Resu lt [facility] [address] [place] [address] from Last 3 Months or Most Recently Relevant to Health Maintenance Insurance [facility] MEDICARE PART A & B [facility] MEDIC[facility] PART A & B [facility] MEDICARE PART A & B [facility] MEDICARE PART A & B [facility] MEDICARE PART A & B Member Subscriber Plan / Payer ( fective 2012-Present) Name:Anish Reynolds Member ID:[id number] Relation to Subscriber:Self Name:Anish Reynolds Subscriber ID:[id number] Payer ID:[id number] Group ID:Not on file Type:Medicare Address: [email or web address] [id number] [facility] MEDICARE PART A & B [facility] MEDICARE PART A & B [facility] MEDICARE PART A & B [facility] MEDICARE PART A & B Care Teams Central Sterile Tech Relationship Specialty Start Date End Date Beka Schwartz MD [address] [facility] [address] [place] [address] PCP - General Internal Medicine 08/28/18 Additional Source Comments The information contained in this document represents components of the legal health record. It is not the complete legal health record.[facility]
[2025-05-07 08:03] LABS: Prothrombin Time Whole Bld POC 23.4 sec (11.1-13.5); ~PT, ~INR - Anti Coag Clinic 1.9 (0.9-1.1)
--- NOTE | 2025-05-07 08:10 | MHC.OFFVISCO ---
Intake Intake Visit Reasons: Anticoagulation Allergies hydrochlorothiazide Adverse Reaction (Severe, Verified 05/07/25 07:57) muscle spasms WALTER Inhibitors Adverse Reaction (Intermediate, Verified 05/07/25 07:57) muscle spasms angiotensin receptor antagonist Allergy (Unknown, Uncoded 04/15/25 08:15) Unknown some statins Adverse Reaction (Intermediate, Uncoded 04/15/25 08:15) muscle spasms Medication List - Last Reconciled 05/07/25 by Essence Fairchild RN allopurinol 200 mg PO DAILY carvedilol 12.5 mg PO BID cetirizine 10 mg PO DAILY cholecalciferol (vitamin D3) PO clotrimazole-betamethasone 1-0.05 % appl topical PRN finasteride 5 mg PO DAILY furosemide 40 mg PO DAILY hydrochlorothiazide 25 mg PO DAILY nitroglycerin mg sublingual simvastatin 40 mg PO QPM tamsulosin 0.4 mg PO DAILY warfarin See Protocol 7.5mg x 4 days /5mg x 3 days orally daily; uses 5mg tabs Nursing Note NO CP,SOB,DIET/MED CHANGES,FALLS OR SX OF BLEEDING. BOOST 1 DAY THEN RESUME USUAL DOSE AND FOLLOW-UP IN 4 WEEKS NO GREENS TODAY GOOD UNDERSTANDING OF DOSING INSTR. Anti-Coag Initial Assessment Social Hx Patient Tobacco Use Status: Former Tobacco user Tobacco use type: Cigarette alcohol intake: never Cardiovascular Hx: HTN, CHF and Arrhythmias Blood Disorder Hx: Hyperlipidemia Hx: Bladder Disorders (cancer right kidney) and Prostate Cancer HX: Yes Psych. Illness/Depression: No Coding Level of Care Code Est Patient Level 1 Diagnoses Current use of anticoagulant therapy Z79.01 Assessment & Plan Assessment & Plan (1) Current use of anticoagulant therapy: Code(s): Z79.01 - director long term care (current) use of anticoagulants Category: Medical
== END 2025-05-07 08:12 | disposition home or self-care (01) ==
LOC: HO.ACS 07:50
PROVIDERS: PCP Internal Medicine; Visit Provider Internal Medicine Medical Oncology
DX: Z79.01 Long term (current) use of anticoagulants (principal)

== ENCOUNTER → 2025-05-07 07:50 | Outpatient (BNVA) | payer MEDICARE, BC, SELFPAY | PROVIDERS: PCP Internal Medicine; Visit Provider Internal Medicine Medical Oncology | DX: Z51.81 Encounter for therapeutic drug level monitoring (principal); Z79.01 Long term (current) use of anticoagulants | CPT/HCPCS: 85610; 99211 ==

== ENCOUNTER 2025-06-03 08:00 | Outpatient (AMB) | payer MEDICARE, BC, SELFPAY ==
--- OUTSIDE RECORDS SUMMARY | 2025-06-03 08:02 | XMS_ITS | Encounter Summary ---
Author Organization [facility] Address [email or web address] [facility] [address] [place] [address] Phone Care Team Providers Care Straight Knife Cutter Machine Name Role Phone Beka Schwartz MD Primary Care Provider +1 [phone] Encounter Details Date Type Department Care Team (Late st Contact Info) Description 11/04/2022 Procedure Pass [facility] Periop [address] [place] [address] Social History Tobacco Use Types Packs/Day Years [...] on filedocumented in this encounter Care Teams Straight Knife Cutter Machine Relationship Specialty Start Date End Date Beka Schwartz MD [address] [place] [address] [place] [address] PCP - General Internal Medicine 08/28/18 documented as of this encounter Additional Source Comments The information contained in this document represents components of the legal health record. It is not the complete legal health record.[facility]
--- OUTSIDE RECORDS SUMMARY | 2025-06-03 08:03 | XMS_ITS | Clinical Summary ---
Author Organization [facility] Address [address] [place] [address] Phone Care Team Providers Care Senior Scheduler Name Role Phone Beka Schwartz MD Primary Care Provider +1 [phone] Allergies Active Allergy Reactions Criticality Noted Date [...] 09/28/2023 09/28/2022 POTASSIUM LEVEL 10/29/2023 10/29/2022, 07/22/2020 INFLUENZA VACCINE (#1) 2025 COVID-19 VACCINE ( - 2023-2 5 season) 2025 SMOKING STATUS SCREENING (On ce After 26 [...] EST) SODIUM 141 135 - 145 mmol/L [facility] POTASSIUM 4.7 3.4 - 5.0 mmol/L [facility] CHLORIDE 105 98 - 108 mmol/L [facility] CO2 28 23 - 32 mmol/L [facility] BUN 25 8 - 25 mg/dL [facility] CREATININE 0.94 0.60 - 1.50 mg/dL [facility] GLUCOSE 96 70 - 110 mg/dL [facility] CALCIUM 9.5 8.5 - 10.5 mg/dL [facility] EGFR 84 >59 mL/min/1.7 3m2 [facility] Comment:Estimated glomerular filtration rate calculated using the CKD-EPI refit equation. ANION GAP 8 3 - 17 mmol/L [facility] 10/29/2022 11:2 2 AM EST 10/29/2022 11:36 AM EST us Sonny Pablo MD LAB BLOOD ORDERABLES Final Resu lt [facility] [address] [place] [address] from Last 3 Months or Most Recently Relevant to Health Maintenance Insurance [facility] MEDICARE PART A & B [facility] MEDICARE PART A & B [facility] MEDICARE PART A & B [facility] MEDICARE PART A & B [facility] MEDICARE PART A & B [facility] MEDICARE PART A & B [facility] MEDICARE PART A & B [facility] MEDICARE PART A & B [facility] MEDICARE PART A & B Care Teams Senior Scheduler Relationship Specialty Start Date End Date Beka Schwartz MD [address] [facility] [address] [place] [address] PCP - General Internal Medicine 08/28/18 Additional Source Comments The information contained in this document represents components of the legal health record. It is not the complete legal health record.[facility]
--- OUTSIDE RECORDS SUMMARY | 2025-06-03 08:03 | XMS_ITS | Encounter Summary ---
Author Organization [facility] Address [address] [place] [address] [place] [address] Phone Care Team Providers Care Transfer Knitter Name Role Phone Beka Schwartz MD Primary Care Provider [phone] [phone] Encounter Details Date Type Department Care Team (Late st Contact Info) Description 10/11/2022 Procedure Pass [facility] [address] [place] [address] Social History Tobacco Use Types Packs/Day Years [...] on filedocumented in this encounter Care Teams Transfer Knitter Relationship Specialty Start Date End Date Beka Schwartz MD [address] [place] [address] [address] [place] [address] PCP - General Internal Medicine 08/28/18 documented as of this encounter Additional Source Comments The information contained in this document represents components of the legal health record. It is not the complete legal health record.[facility]
[2025-06-03 08:08] LABS: Prothrombin Time Whole Bld POC 24.2 sec (11.1-13.5); ~PT, ~INR - Anti Coag Clinic 2.0 (0.9-1.1)
--- NOTE | 2025-06-03 08:10 | MHC.OFFVISCO ---
Intake Intake Visit Reasons: Anticoagulation Allergies hydrochlorothiazide Adverse Reaction (Severe, Verified 06/03/25 08:01) muscle spasms WALTER Inhibitors Adverse Reaction (Intermediate, Verified 06/03/25 08:01) muscle spasms angiotensin receptor antagonist Allergy (Unknown, Uncoded 06/03/25 08:01) Unknown some statins Adverse Reaction (Intermediate, Uncoded 06/03/25 08:01) muscle spasms Medication List - Last Reconciled 06/03/25 by Mary Jo Oconnell RN carvedilol 12.5 mg PO BID cetirizine 10 mg PO DAILY cholecalciferol (vitamin D3) PO clotrimazole-betamethasone 1-0.05 % appl topical PRN finasteride 5 mg PO DAILY furosemide 40 mg PO DAILY hydrochlorothiazide 25 mg PO DAILY nitroglycerin mg sublingual simvastatin 40 mg PO QPM tamsulosin 0.4 mg PO DAILY warfarin See Protocol 7.5mg x 4 days /5mg x 3 days orally daily; uses 5mg tabs Nursing Note INR: 2.0 in therapeutic range Medications and supplements reviewed No changes in health, diet, medications, or supplements, Denies any signs and symptoms of bleeding or bruising or clotting. Bleeding, bruising, clotting discussed Nutritional guidance given Dose: 5MG MWF/ 7.5MG X 4 DAYS F/U INR: 1 MONTH Patient verbalizes understanding of instructions given Anti-Coag Initial Assessment Social Hx Patient Tobacco Use Status: Former Tobacco user Tobacco use type: Cigarette alcohol intake: never Cardiovascular Hx: HTN, CHF and Arrhythmias Blood Disorder Hx: Hyperlipidemia Hx: Bladder Disorders (cancer right kidney) and Prostate Cancer HX: Yes Psych. Illness/Depression: No Coding Level of Care Code Est Patient Level 1 Diagnoses Current use of anticoagulant therapy Z79.01 Assessment & Plan Assessment & Plan (1) Current use of anticoagulant therapy: Code(s): Z79.01 - terminal gauger (current) use of anticoagulants Category: Medical
== END 2025-06-03 08:15 | disposition home or self-care (01) ==
LOC: HO.ACS 08:00
PROVIDERS: PCP Internal Medicine; Visit Provider Internal Medicine Medical Oncology
DX: Z79.01 Long term (current) use of anticoagulants (principal)

== ENCOUNTER → 2025-06-03 08:00 | Outpatient (BNVA) | payer MEDICARE, BC, SELFPAY | PROVIDERS: PCP Internal Medicine; Visit Provider Internal Medicine Medical Oncology | DX: Z51.81 Encounter for therapeutic drug level monitoring (principal); Z79.01 Long term (current) use of anticoagulants | CPT/HCPCS: 85610; 99211 ==

== ENCOUNTER 2025-07-01 08:09 | Outpatient (AMB) | payer MEDICARE, BC, SELFPAY ==
[2025-07-01 08:27] LABS: Prothrombin Time Whole Bld POC 26.4 sec (11.1-13.5); ~PT, ~INR - Anti Coag Clinic 2.2 (0.9-1.1)
--- NOTE | 2025-07-01 08:28 | MHC.OFFVISCO ---
Intake Intake Visit Reasons: Anticoagulation Allergies hydrochlorothiazide Adverse Reaction (Severe, Verified 07/01/25 08:23) muscle spasms WALTER Inhibitors Adverse Reaction (Intermediate, Verified 07/01/25 08:23) muscle spasms angiotensin receptor antagonist Allergy (Unknown, Uncoded 07/01/25 08:23) Unknown some statins Adverse Reaction (Intermediate, Uncoded 07/01/25 08:23) muscle spasms Medication List - Last Reconciled 07/01/25 by Karma Ovalles RN carvedilol 12.5 mg PO BID cetirizine 10 mg PO DAILY cholecalciferol (vitamin D3) PO clotrimazole-betamethasone 1-0.05 % appl topical PRN finasteride 5 mg PO DAILY furosemide 40 mg PO DAILY hydrochlorothiazide 25 mg PO DAILY nitroglycerin mg sublingual simvastatin 40 mg PO QPM tamsulosin 0.4 mg PO DAILY warfarin See Protocol 7.5mg x 4 days /5mg x 3 days orally daily; uses 5mg tabs Nursing Note INR: 2.2 in therapeutic range 2-3 Medications and supplements reviewed No changes in health, diet, medications, or supplements, Denies any signs and symptoms of bleeding or bruising or clotting. Bleeding, bruising, clotting discussed Nutritional guidance given Dose: 7.5mg X 4 days and 5mg X 3 days F/U INR: 4 weeks Patient verbalizes understanding of instructions given Anti-Coag Initial Assessment Social Hx Patient Tobacco Use Status: Former Tobacco user Tobacco use type: Cigarette alcohol intake: never Cardiovascular Hx: HTN, CHF and Arrhythmias Blood Disorder Hx: Hyperlipidemia Hx: Bladder Disorders (cancer right kidney) and Prostate Cancer HX: Yes Psych. Illness/Depression: No Coding Level of Care Code Est Patient Level 1 Diagnoses Current use of anticoagulant therapy Z79.01 Assessment & Plan Assessment & Plan (1) Current use of anticoagulant therapy: Code(s): Z79.01 - oysterman (current) use of anticoagulants Category: Medical
== END 2025-07-01 08:34 | disposition home or self-care (01) ==
LOC: HO.ACS 08:09
PROVIDERS: PCP Internal Medicine; Visit Provider Internal Medicine Medical Oncology
DX: Z79.01 Long term (current) use of anticoagulants (principal)

== ENCOUNTER → 2025-07-01 08:09 | Outpatient (BNVA) | payer MEDICARE, BC, SELFPAY | PROVIDERS: PCP Internal Medicine; Visit Provider Internal Medicine Medical Oncology | DX: I48.0 Paroxysmal atrial fibrillation (principal); Z51.81 Encounter for therapeutic drug level monitoring; Z79.01 Long term (current) use of anticoagulants | CPT/HCPCS: 85610; 99211 ==

== ENCOUNTER 2025-07-30 07:35 | Outpatient (AMB) | payer MEDICARE, BC, SELFPAY ==
--- OUTSIDE RECORDS SUMMARY | 2025-07-30 07:37 | XMS_ITS | Clinical Summary ---
Author Organization [facility] Address [address] [place] [address] Phone Care Team Providers Care Loan Broker Name Role Phone Beka Schwartz MD Primary Care Provider [phone] [phone] Allergies Active Allergy Reactions Criticality Noted Date [...] VACCINE (#1) 2025 COVID-19 VACCINE ( - 2024-2 6 season) 2025 SMOKING STATUS SCREENING (On ce After 26 Yrs) Completed 10/28/2022 HEPATITIS A VACCINES Aged Out No long er eligible based on patient's age to complete this topic HIB VACCINES Aged Out No longer eligi ble based on patient's age to complete this topic IPV VACCINES Aged Out No longer eligi ble [...] Date/Time Associated Diagnosis Comments BASIC METABOLIC PANEL (BMP) Routine 10/29/2022 11:22 AM EST Preop examination from Last 3 Months or Most Recently Relevant to Health Maintenance Results * Basic metabolic panel (10/29/2022 11:22 AM EST) SODIUM 141 135 - 145 mmol/L [facility] POTASSIUM 4.7 3.4 - 5.0 mmol/L [facility] CHLORIDE 105 98 - 108 mmol/L [facility] CO2 28 23 - 32 mmol/L [facility] BUN 25 8 - 25 mg/dL [facility] CREATININE 0.94 0.60 - 1.50 mg/dL [facility] GLUCOSE 96 70 - 110 mg/dL [facility] CALCIUM 9.5 8.5 - 10.5 mg/dL [facility] EGFR 84 >59 mL/min/1.7 3m2 [facility] Comment:Estimated glomerular filtration rate calculated using the CKD-EPI refit equation. ANION GAP 8 3 - 17 mmol/L [facility] 10/29/2022 11:2 2 AM EST 10/29/2022 11:36 AM EST us Sonny Pablo MD LAB BLOOD BKR ORDERABLES Final Result [facility] [address] [place] [address] from Last 3 Months or Most Recently Relevant to Health Maintenance Insurance [facility] MEDICARE PART A & B [facility] MEDICARE PART A & B [facility] MEDICARE PART A & B [facility] MEDICARE PART A & B [facility] MEDICARE PART A & B [facility] MEDICARE PART A & B [facility] MEDICARE PART A & B [facility] MEDICARE PART A & B [facility] MEDICARE PART A & B Care Teams Loan Broker Relationship Specialty Start Date End Date Beka Schwartz MD [address] [place] [address] PCP - General Internal Medicine 08/28/18 Additional Source Comments The information contained in this document represents components of the legal health record. It is not the complete legal health record.[facility]
--- OUTSIDE RECORDS SUMMARY | 2025-07-30 07:37 | XMS_ITS | Encounter Summary ---
Author Organization [facility] Address [address] [place] [address] Phone Care Team Providers Care Bookkeeping Clerks Supervisor Name Role Phone Beka Schwartz MD Primary Care Provider +1 [phone] Encounter Details Date Type Department Care Team (Late st Contact Info) Description 10/11/2022 Procedure Pass [facility] [address] [place] [address] Social History Tobacco Use Types Packs/Day Years [...] on filedocumented in this encounter Care Teams Bookkeeping Clerks Supervisor Relationship Specialty Start Date End Date Beka Schwartz MD [address] [place] [address] [address] [place] [address] PCP - General Internal Medicine 08/28/18 documented as of this encounter Additional Source Comments The information contained in this document represents components of the legal health record. It is not the complete legal health record.[facility]
--- OUTSIDE RECORDS SUMMARY | 2025-07-30 07:37 | XMS_ITS | Encounter Summary ---
Author Organization [facility] Address [email or web address] [facility] [address] [place] [address] Phone Care Team Providers Care Call Taker Name Role Phone Beka Schwartz MD Primary Care Provider [phone] [phone] Encounter Details Date Type Department Care Team (Late st Contact Info) Description 11/04/2022 Procedure Pass [facility] Periop [address] [place] [address] Social History Tobacco Use Types Packs/Day Years [...] on filedocumented in this encounter Care Teams Call Taker Relationship Specialty Start Date End Date Beka Schwartz MD [address] [place] [address] [place] [address] PCP - General Internal Medicine 08/28/18 documented as of this encounter Additional Source Comments The information contained in this document represents components of the legal health record. It is not the complete legal health record.[facility]
--- NOTE | 2025-07-30 08:04 | MHC.OFFVISCO ---
Intake Intake Visit Reasons: Anticoagulation Allergies hydrochlorothiazide Adverse Reaction (Severe, Verified 07/30/25 07:46) muscle spasms WALTER Inhibitors Adverse Reaction (Intermediate, Verified 07/30/25 07:46) muscle spasms angiotensin receptor antagonist Allergy (Unknown, Uncoded 07/30/25 07:46) Unknown some statins Adverse Reaction (Intermediate, Uncoded 07/30/25 07:46) muscle spasms Medication List - Last Reconciled 07/30/25 by Mary Jo Oconnell RN allopurinol 200 mg PO DAILY carvedilol 12.5 mg PO BID cetirizine 10 mg PO DAILY cholecalciferol (vitamin D3) PO clotrimazole-betamethasone 1-0.05 % appl topical PRN finasteride 5 mg PO DAILY furosemide 40 mg PO DAILY hydrochlorothiazide 25 mg PO DAILY nitroglycerin mg sublingual simvastatin 40 mg PO QPM tamsulosin 0.4 mg PO DAILY warfarin See Protocol 7.5mg x 4 days /5mg x 3 days orally daily; uses 5mg tabs Nursing Note INR: 4.3 OUT OF therapeutic range Medications and supplements reviewed GOUT FLARE UP WAS ON ALLOPURONAL AND PREDNISONE 40MG TAPPERING DOSE-BOTH CAN RAISE THE INR *PT INSTRUCTED TO ALWAYS CALL [facility] WITH MED CHANGES *REVIEWD FOODS AND MED THAT CAN CAUSE GOUT AND ENC TO DISCUSS HYRDORCHOLORTHIAZED WITH MD Denies any signs and symptoms of bleeding or bruising or clotting. Bleeding, bruising, clotting discussed Nutritional guidance given Dose: HOLD TODAY THEN RESUME USUAL DOSE 5MG X 3 DASY/ 7.5MG X 4 DAYS F/U INR: 2 WEEKS PER PT REQUEST - HE STATED HE WOULD EAT GREENS TODAY Patient verbalizes understanding of instructions given Anti-Coag Initial Assessment Social Hx Patient Tobacco Use Status: Former Tobacco user Tobacco use type: Cigarette alcohol intake: never Cardiovascular Hx: HTN, CHF and Arrhythmias Blood Disorder Hx: Hyperlipidemia Hx: Bladder Disorders (cancer right kidney) and Prostate Cancer HX: Yes Psych. Illness/Depression: No Coding Level of Care Code Est Patient Level 1 Diagnoses Current use of anticoagulant therapy Z79.01 Results AMB INR Fingerstick AMB INR Fingerstick 4.3 Last Edit by Mary Jo Oconnell RN on 07/30/25 07:56 MANUAL ENTRY Assessment & Plan Assessment & Plan (1) Current use of anticoagulant therapy: Code(s): Z79.01 - [facility] (current) use of anticoagulants Category: Medical Medications: New prednisone 40MG TAPPERING DOSE orally daily;
[2025-07-30 08:18] LABS: Prothrombin Time Whole Bld POC 51.4 sec (11.1-13.5); ~PT, ~INR - Anti Coag Clinic 4.3 (0.9-1.1)
== END 2025-07-30 08:07 | disposition home or self-care (01) ==
LOC: HO.ACS 07:35
PROVIDERS: PCP Internal Medicine; Visit Provider Internal Medicine Medical Oncology
DX: Z79.01 Long term (current) use of anticoagulants (principal)

== ENCOUNTER → 2025-07-30 07:35 | Outpatient (BNVA) | payer MEDICARE, BC, SELFPAY | PROVIDERS: PCP Internal Medicine; Visit Provider Internal Medicine Medical Oncology | DX: I48.19 Other persistent atrial fibrillation (principal); Z51.81 Encounter for therapeutic drug level monitoring; Z79.01 Long term (current) use of anticoagulants | CPT/HCPCS: 85610; 99211 ==

== ENCOUNTER 2025-08-13 07:48 | Outpatient (AMB) | payer MEDICARE, BC, SELFPAY ==
[2025-08-13 07:55] LABS: Prothrombin Time Whole Bld POC 30.4 sec (11.1-13.5); ~PT, ~INR - Anti Coag Clinic 2.5 (0.9-1.1)
--- NOTE | 2025-08-13 08:00 | MHC.OFFVISCO ---
Intake Intake Visit Reasons: Anticoagulation Allergies hydrochlorothiazide Adverse Reaction (Severe, Verified 08/13/25 07:49) muscle spasms WALTER Inhibitors Adverse Reaction (Intermediate, Verified 08/13/25 07:49) muscle spasms angiotensin receptor antagonist Allergy (Unknown, Uncoded 08/13/25 07:49) Unknown some statins Adverse Reaction (Intermediate, Uncoded 08/13/25 07:49) muscle spasms Medication List - Last Reconciled 08/13/25 by Mary Jo Oconnell RN carvedilol 12.5 mg PO BID cetirizine 10 mg PO DAILY cholecalciferol (vitamin D3) PO clotrimazole-betamethasone 1-0.05 % appl topical PRN finasteride 5 mg PO DAILY furosemide 40 mg PO DAILY hydrochlorothiazide 25 mg PO DAILY nitroglycerin mg sublingual simvastatin 40 mg PO QPM tamsulosin 0.4 mg PO DAILY warfarin See Protocol 7.5mg x 4 days /5mg x 3 days orally daily; uses 5mg tabs Nursing Note INR: 2.5 in therapeutic range Medications and supplements reviewed No changes in health, diet, medications, or supplements, Denies any signs and symptoms of bleeding or bruising or clotting. Bleeding, bruising, clotting discussed Nutritional guidance given Dose: 7.5MG X 4 DAYS/ 5MG X 3 DAYS F/U INR: 1 MONTH Patient verbalizes understanding of instructions given Anti-Coag Initial Assessment Social Hx Patient Tobacco Use Status: Former Tobacco user Tobacco use type: Cigarette alcohol intake: never Cardiovascular Hx: HTN, CHF and Arrhythmias Blood Disorder Hx: Hyperlipidemia Hx: Bladder Disorders (cancer right kidney) and Prostate Cancer HX: Yes Psych. Illness/Depression: No Coding Level of Care Code Est Patient Level 1 Diagnoses Current use of anticoagulant therapy Z79.01 Assessment & Plan Assessment & Plan (1) Current use of anticoagulant therapy: Code(s): Z79.01 - [facility] (current) use of anticoagulants Category: Medical
--- OUTSIDE RECORDS SUMMARY | 2025-08-13 08:16 | XMS_ITS | Clinical Summary ---
Author Organization [facility] Address [address] [place] [id number] Phone Care Team Providers Care Eeg Tech Name Role Phone Beka Schwartz MD Primary Care Provider [phone] Allergies Active Allergy Reactions Criticality Noted Date [...] - 145 mmol/L [facility] POTASSIUM 4.7 3.4 - 5.0 mmol/L [facility] CHLORIDE 105 98 - 108 mmol/L [facility] CO2 28 23 - 32 mmol/L [facility] BUN 25 8 - 25 mg/dL [facility] CREATININE 0.94 0.60 - 1.50 mg/dL [facility] GLUCOSE 96 70 - 110 mg/dL [facility] CALCIUM 9.5 8.5 - 10.5 mg/dL [facility] EGFR 84 >59 mL/min/1.7 3m2 [facility] Comment:Estimated glomerular filtration rate calculated using the CKD-EPI refit equation. ANION GAP 8 3 - 17 mmol/L [facility] 10/29/2022 11:2 2 AM EST 10/29/2022 11:36 AM EST us Sonny Pablo MD LAB BLOOD BKR ORDERABLES Final Result [facility] [address] [place] [address] from Last 3 Months or Most Recently Relevant to Health Maintenance Insurance [facility] MEDICARE PART A & B Member Subscriber Plan / Payer (Ef fective 2012-Present) Name:Anish Reynolds Member ID:[id number] Relation to Subscriber:Self Name:Anish Reynolds Subscriber ID:[id number] Payer ID:[id number] Group ID:Not on file Type:Medicare Address: [facility] [facility] [address] [facility] [place] [address] [facility] MEDICARE PART A & B [facility] MEDICARE PART A & B [facility] MEDICARE PART A & B [facility] MEDICARE PART A & B [facility] MEDICARE PART A & B [facility] MEDICARE PART A & B [facility] MEDICARE PART A & B [facility] MEDICARE PART A & B Care Teams Eeg Tech Relationship Specialty Start Date End Date Beka Schwartz MD [address] [facility] [address] [place] [address] PCP - General Internal Medicine 08/28/18 Additional Source Comments The information contained in this document represents components of the legal health record. It is not the complete legal health record.[facility]
--- OUTSIDE RECORDS SUMMARY | 2025-08-13 08:16 | XMS_ITS | Encounter Summary ---
Author Organization [facility] Address [address] [facility] [address] [place] [id number] Phone Care Team Providers Care Squadron Worker Name Role Phone Beka Schwartz MD Primary Care Provider [phone] Encounter Details Date Type Department Care Team (Late st Contact Info) Description 11/04/2022 Procedure Pass [facility] [address] [place] [address] Social History Tobacco Use Types Packs/Day Years [...] on filedocumented in this encounter Care Teams Squadron Worker Relationship Specialty Start Date End Date Beka Schwartz MD [address] [place] [address] [place] [address] PCP - General Internal Medicine 08/28/18 documented as of this encounter Additional Source Comments The information contained in this document represents components of the legal health record. It is not the complete legal health record.[facility]
--- OUTSIDE RECORDS SUMMARY | 2025-08-13 08:16 | XMS_ITS | Encounter Summary ---
Author Organization [facility] Address [address] [place] [address] Phone Care Team Providers Care Foundry Worker General Name Role Phone Beka Schwartz MD Primary Care Provider [phone] Encounter Details Date Type Department Care Team (Late st Contact Info) Description 10/11/2022 Procedure Pass [facility] [address] [place] [address] Social History Tobacco Use Types Packs/Day Years [...] on filedocumented in this encounter Care Teams Foundry Worker General Relationship Specialty Start Date End Date Beka Schwartz MD [address] [place] [address] [address] [place] [address] PCP - General Internal Medicine 08/28/18 documented as of this encounter Additional Source Comments The information contained in this document represents components of the legal health record. It is not the complete legal health record.[facility]
== END 2025-08-13 08:02 | disposition home or self-care (01) ==
LOC: HO.ACS 07:48
PROVIDERS: PCP Internal Medicine; Visit Provider Internal Medicine Medical Oncology
DX: Z79.01 Long term (current) use of anticoagulants (principal)

== ENCOUNTER → 2025-08-13 07:48 | Outpatient (BNVA) | payer MEDICARE, BC, SELFPAY | PROVIDERS: PCP Internal Medicine; Visit Provider Internal Medicine Medical Oncology | DX: Z79.01 Long term (current) use of anticoagulants (principal) | CPT/HCPCS: 85610; 99211 ==